=== PATIENT | male | born 1945 | race Caucasian/White ===

== ENCOUNTER 2023-11-18 12:02 | Outpatient (RCR) | payer MEDICARE, SELFPAY | END 2023-11-18 23:59 | disposition home or self-care (01) | LOC: RPT 12:02 | PROVIDERS: ATTENDING PHYSICIAN Student in an Organized Health Care Education/Training Program; PRIMARYCARE PHYSICIAN Family Medicine | DX: Z47.1 Aftercare following joint replacement surgery (principal); Z96.662 Presence of left artificial ankle joint; Z73.6 Limitation of activities due to disability | CPT/HCPCS: 97110; 97112; 97161 ==

== ENCOUNTER 2023-12-09 14:01 | Outpatient (RCR) | payer MEDICARE, SELFPAY | END 2023-12-09 14:57 | disposition home or self-care (01) | LOC: RPT 14:01 | PROVIDERS: ATTENDING PHYSICIAN Student in an Organized Health Care Education/Training Program; PRIMARYCARE PHYSICIAN Family Medicine | DX: Z47.1 Aftercare following joint replacement surgery (principal); Z73.6 Limitation of activities due to disability; R26.89 Other abnormalities of gait and mobility; R26.2 Difficulty in walking, not elsewhere classified; M62.81 Muscle weakness (generalized); Z96.662 Presence of left artificial ankle joint | CPT/HCPCS: 97110; 97112 ==

== ENCOUNTER → 2023-12-28 13:44 | Outpatient (REF) | payer MEDICARE, SELFPAY | LOC: MRI 13:44 | PROVIDERS: ATTENDING PHYSICIAN Student in an Organized Health Care Education/Training Program; FAMILY PHYSICIAN Family Medicine | DX: M25.571 Pain in right ankle and joints of right foot (principal) | CPT/HCPCS: 73718; 73721 ==

== ENCOUNTER → 2024-01-07 14:58 | Outpatient (REF) | payer MEDICARE, SELFPAY | LOC: HWRAD 14:58 | PROVIDERS: ATTENDING PHYSICIAN Orthopaedic Surgery Hand Surgery; FAMILY PHYSICIAN Family Medicine | DX: M12.811 Other specific arthropathies, not elsewhere classified, right shoulder (principal) | CPT/HCPCS: 73200 ==

== ENCOUNTER → 2024-01-11 13:12 | Outpatient (REF) | payer MEDICARE, SELFPAY ==
[2024-01-11 13:30] VITALS: BP 137/73; BP_SYST 16
[2024-01-11 13:46] VITALS: BP 128/69; BP_SYST 60
[2024-01-11 14:49] LABS: Body Fluid pH 7.27
[2024-01-11 14:57] LABS: Body Fluid Glucose 42 mg/dl; Body Fluid LDH 405 U/L; Body Fluid Protein 3.9 g/dl
[2024-01-11 15:30] LABS: Body Fluid Mononuclear 88 %; Body Fluid Polymorphonuclear 12 %; Body Fluid WBC 870 /CUMM
[2024-01-11 15:55] LABS: Body Fluid Second Tech EYM
== END ==
LOC: RADI 13:12
PROVIDERS: ATTENDING PHYSICIAN Internal Medicine Critical Care Medicine; FAMILY PHYSICIAN Family Medicine
DX: J90 Pleural effusion, not elsewhere classified (principal)
CPT/HCPCS: 88305; 32555; 71045; 82945; 83615; 83986; 84157; 87015; 87070; 87102; 87116; 87205; 87206; 88112; 89051

== ENCOUNTER 2024-01-12 06:16 | Day surgery (SDC) | payer MEDICARE, SELFPAY ==
--- NOTE | 2024-01-06 13:14 | PTCARENOTE ---
Abnormal CXR on 12/27/23, Dr. Escobar notified, advised ' CXR will have to be addressed prior to surgery'. Crystal Oconnell and Hailey Ibrahim notified, no further instructions.
--- NOTE | 2024-01-10 17:12 | PTCARENOTE ---
Hailey at 's office said that the patient will now be strictly local anesthesia.
[2024-01-12] VITALS (7 sets, daily range): BP systolic 85–144; BP diastolic 36–77; BMI 28.7
[2024-01-12] MEDS: TYLENOL 1000 MG PO (08:04)
[2024-01-12] MEDS: NORMOSOL-R 1000 IV (08:05)
[2024-01-12] MEDS: CELEBREX 200 MG PO (08:05)
== END 2024-01-12 10:55 | disposition home or self-care (01) ==
LOC: SDS 06:16
PROVIDERS: ATTENDING PHYSICIAN Student in an Organized Health Care Education/Training Program
DX: D36.13 Benign neoplasm of peripheral nerves and autonomic nervous system of lower limb, including hip (principal); D16.31 Benign neoplasm of short bones of right lower limb
CPT/HCPCS: 28104; 28080; 88304

== ENCOUNTER 2024-02-02 09:56 | Inpatient (IN) | payer MEDICARE, SELFPAY ==
--- NOTE | 2024-01-07 09:41 | CM ---
Addendum entered by Jane Ennis 01/07/24 10:12:
Patient is no longer same day as his has a commitment on day of surgery and can't be with patient.
Original Note:
Patient is scheduled for an elective R Reverse TSA on 02/02/24- he is a same day patient. Spoke with patient prior to surgery. Introduced role of Orthopedic Navigator. Patient reports that he lives with his in a two story home. Currently he
functions independently. He has a cane and shower seat. He has had VN services through [facility]. PCP is Dr. Salas Boggs.
Discussed orthopedic program and post surgical plans. Patient will return home when directed by surgeon. Reviewed MD follow up and transition to outpatient therapy. Patient is in agreement with tentative plan and states that his will be home
with him and can assist if needed.
Patient will complete online education.
Plan: Orthopedic Navigator will be involved in the care of patient after surgery and will reassess discharge needs at that time.
[2024-01-14 13:54] VITALS: BMI 29.1
[2024-01-14 14:29] LABS: Hematocrit 31.1 % (39.0-52.0); Hemoglobin 9.7 g/dL (13.0-18.0); Mean Corp Hgb Conc. 31.2 g/dL (33.0-37.0); Mean Corpuscular Hgb 26.5 pg (27.0-31.0); Mean Platelet Volume 9.3 fL (7.4-10.4); Platelet Count 388 10^3/uL (130-400); Red Blood Cell Count 3.66 10^6/uL (4.70-6.10); Red Cell Dist. Width 15.9 % (11.5-14.5); White Blood Cell Count 10.9 10^3/uL (4.8-10.8)
[2024-01-14 14:39] LABS: ALT (SGPT) 17 U/L (0-50); AST (SGOT) 73 U/L (17-59); Albumin 3.5 g/dl (3.5-5.0); Alkaline Phosphatase 135 U/L (38-126); Blood Urea Nitrogen 28 mg/dl (9-20); Calcium 8.7 mg/dl (8.4-10.2); Carbon Dioxide 29 mmol/L (22-30); Chloride 106 mmol/L (98-107); Estimated Creatinine Clearance 68 ml/min; Glucose 80 mg/dl (70-99); Potassium 3.4 mmol/L (3.5-5.1); Sodium 140 mmol/L (135-145); Total Bilirubin 0.6 mg/dl (0.2-1.3); eGFR > 60.00
[2024-01-15 10:57] LABS: Glycohemoglobin (HgbA1c) 5.7 % (4.0-5.6)
[2024-01-26 11:35] VITALS: BMI 29.1
[2024-02-02] VITALS (19 sets, daily range): BP systolic 90–120; BP diastolic 54–87; PULSE 60–63; O2SAT 96; BMI 29.1
[2024-02-02] MEDS: NORMOSOL-R 1000 IV ×2 (07:36→12:38)
[2024-02-02] MEDS: CELEBREX 200 MG PO (07:36)
[2024-02-02] MEDS: TYLENOL 1000 MG PO (07:36)
--- NOTE | 2024-02-02 07:58 | W.PN.UPDATE ---
Update Note
Progress Note Update
Asked by Anesthesiology to deactive patient's defibrillator. Right sided ICD. No recent AF or VT. AP/VS.
Turned tachytherapies off and provided printout to team at bedside. Discussed with patient, team, and Anesthesiology that the device should be turned back on (ICD therapies) in PACU and patient to remain on Defib pads while ICD off. Provided our
local [place] team's contact info to Anesthesiology team and they will call our local team to turn the device back on.
--- NOTE | 2024-02-02 08:47 | W.PN.ORTHO ---
Today's Communication / Plan
-
D/c when clinically stable.
Assessment
.
Distal Motor Intact: Yes
Dressing:
Clean, dry and intact.
Assessment:
R rotator cuff arthropathy s/p R Reverse TSA w/ Dr Platt 02/02/24
DVT prophylaxis - Eliquis at modified dosing, b/l venous foot pumps
- Will resume Eliquis 5 mg PO BID on POD 3 if remaining hemodynamically stable
HTN - + parameters - monitor BP
Coronary artery disease, status post PCI with multivessel stents 2009 and 2010
Paroxysmal atrial fibrillation, status post ablation 01/2023
Ventricular tachycardia, status post ICD implantation 10/2021
- Monitor on tele
- Continue BB and Isosorbide
- Resume Eliquis as stated above
Asthma, moderate and persistent
History of amiodarone related pulmonary toxicity
Right pleural effusion on chest x-ray 01/11/2024, status post thoracentesis
Obstructive sleep apnea, compliant with CPAP (setting 5)
Chronic dyspnea on exertion
- Monitor O2
- IS
- Duonebs prn
- Consider Prednisone taper
- Resume CPAP HS
- Minimize opioids as able
Documented chronic kidney disease; pre-operative creatinine and GFR stable - no NSAIDs
GERD - add Pepcid HS
Right frontal CVA, 2007, without residual deficits, and TIA x2 2009 - pt advised to take baby ASA while holding Eliquis pre-op
- Resume Eliquis as indicated above
Anemia, likely secondary to recent acute blood loss - monitor H&H
- Advised to start oral iron daily
Mild hypokalemia - will resume home Lasix w/ BP parameters. If Lasix should be given, KCl ordered for 1x dose
- Normosol also infusing
Mildly elevated transaminases - reduce max dose of Tylenol daily
OA, status post R TKA, 12/2017, by Dr. Ludin Ordaz
Hyperlipidemia
Mild aortic stenosis
Multilevel degenerative disc disease
Psoriasis
C. diff colitis 2010
Hearing impairment bilaterally
Mild leukocytosis
Prediabetes, A1c 5.7
Remote history of tobacco abuse
Plan
.
Surgery / Date: R Reverse SANDIE w/ Dr Platt 02/02/24
DVT Prophylaxis: Other (Eliquis )
Activity:
Out of bed.
PT/OT
Discharge Plan: Home
Subjective
.
.:
Patient resting comfortably in bed.
R shoulder pain minimal and currently well tolerated.
Denies any new significant complaints.
Vital Signs and Labs
.
Vital Signs and Labs:
Lab Results
01/14/24 13:47
01/14/24 13:47
Temp Pulse Resp BP Pulse Ox
97.6 F 64 16 120/69 100
02/02/24 07:23 02/02/24 07:23 02/02/24 07:23 02/02/24 07:23 02/02/24 07:23
Physical Exam
-
HEENT: No pallor, cyanosis, or jaundice. Throat clear.
NECK: Supple. No JVD.
RESPIRATORY: Lungs clear to auscultation.
CVS: S1, S2 normal. RRR.�+ R-sided ICD.
ABDOMEN: Soft, non-tender. No distension.
EXTREMITIES: + RUE sling. Good pile fabric knitter b/l. Strength equal, no calf pain with palpation/dorsiflexion. Calves soft.
SENIOR MEDIA BUYER: AOx3. No focal deficits. shaft mechanic grossly intact
[2024-02-02] MEDS: TYLENOL 650 MG PO ×2 (13:27→20:39)
[2024-02-02] MEDS: LIPITOR 40 MG PO (14:27)
[2024-02-02] MEDS: FEOSOL 325 MG PO (14:27)
[2024-02-02] MEDS: ANCEF 5 IV (15:09)
--- NOTE | 2024-02-02 16:30 | PTCARENOTE ---
Pt received from PACU s/p R Reverse TSA. AAOx3. A-paced on bricklayer supervisor. VSS. R shoulder Aquacel CDI. Sling on R arm. Pt denies any pain at this time. Normosol infusing per order. Assessment documented.
[2024-02-02 18:23] LABS: Hematocrit 26.6 % (39.0-52.0); Hemoglobin 8.6 g/dL (13.0-18.0)
[2024-02-02] MEDS: VITAMIN D3 (cholecalciferol) 125 MCG PO (20:40)
[2024-02-02] MEDS: PEPCID 20 MG PO (20:40)
[2024-02-02] MEDS: KCL 20 MEQ PO (20:40)
[2024-02-02] MEDS: LASIX 40 MG PO (20:40)
[2024-02-02] MEDS: ELIQUIS 2.5 MG PO (20:41)
[2024-02-02] MEDS: TOPROL XL 50 MG PO (20:41)
[2024-02-02] MEDS: BACTROBAN 2% OINTMENT 1 APPLIC NASAL (20:41)
[2024-02-02] MEDS: COLACE 100 MG PO (20:41)
[2024-02-02] MEDS: SENOKOT 17.1999999999999993 MG PO (20:41)
[2024-02-03] MEDS: ANCEF 5 IV (01:03)
[2024-02-03] MEDS: TYLENOL PO (03:01)
[2024-02-03 03:20] VITALS: BP 118/62
[2024-02-03 06:07] LABS: Hematocrit 26.2 % (39.0-52.0); Hemoglobin 8.3 g/dL (13.0-18.0)
[2024-02-03 07:45] VITALS: BP 111/53
[2024-02-03] MEDS: BACTROBAN 2% OINTMENT 1 APPLIC NASAL (08:26)
[2024-02-03] MEDS: FEOSOL 325 MG PO (08:27)
[2024-02-03] MEDS: SENOKOT 17.1999999999999993 MG PO (08:27)
[2024-02-03] MEDS: LIPITOR 40 MG PO (08:27)
[2024-02-03] MEDS: TYLENOL 650 MG PO (08:27)
[2024-02-03] MEDS: ELIQUIS 2.5 MG PO (08:28)
[2024-02-03] MEDS: COLACE 100 MG PO (08:29)
--- NOTE | 2024-02-03 08:52 | CM ---
Addendum entered by Jane Ennis 02/03/24 09:39:
Patient did well in therapy and has no concerns about going home.
Original Note:
Reviewed chart and held rounds with OT and nursing. Patient admitted as planned for elective R Reverse TSA. Met with patient at bedside. Confirmed information previously obtained for case management assessment and discussed discharge plans. The plan
is for patient to return home at discharge. He will have support from his when he goes home. Discussed MD follow up and he is aware of need to contact surgeon's office to schedule appointment.
Patient will use [facility] pharmacy for discharge prescriptions.
No needs currently identified.
--- NOTE | 2024-02-03 09:16 | W.PN.ORTHO ---
Today's Communication / Plan
-
Await OT recs.
D/c later today if remaining clinically stable.
Assessment
.
Distal Motor Intact: Yes
Dressing:
Clean, dry and intact.
Assessment:
R rotator cuff arthropathy s/p R Reverse TSA w/ Dr Platt 02/02/24
DVT prophylaxis - Eliquis at modified dosing, b/l venous foot pumps
- Will resume Eliquis 5 mg PO BID on POD 3 since hemodynamically stable
HTN - + parameters - BPs stable
Coronary artery disease, status post PCI with multivessel stents 2009 and 2010
Paroxysmal atrial fibrillation, status post ablation 01/2023
Ventricular tachycardia, status post ICD implantation 10/2021
- Rhythm stable on tele
- Continue BB and Isosorbide
- Resume Eliquis as stated above
Asthma, moderate and persistent
History of amiodarone related pulmonary toxicity
Right pleural effusion on chest x-ray 01/11/2024, status post thoracentesis
Obstructive sleep apnea, compliant with CPAP (setting 5)
Chronic dyspnea on exertion
- O2 stable on RA
- IS
- Duonebs prn - thankfully not needed
- Consider Prednisone taper
- Resumed CPAP HS
- Minimizing opioids as able
Documented chronic kidney disease; pre-operative creatinine and GFR stable - no NSAIDs
GERD - added Pepcid HS during admission
Right frontal CVA, 2007, without residual deficits, and TIA x2 2009 - pt advised to take baby ASA while holding Eliquis pre-op
- Resume Eliquis as indicated above
Acute on chronic anemia related to blood loss from recent surgeries - H&H stable yesterday and today (8.6, 8.3)
- Pt asymptomatic, hemodynamically stable
- Dressing remaining C/D/I
- Continue PO iron
- CBC outpatient to ensure stability
Mild hypokalemia - Given KCl, Normosol during admission
- Will put BP hold parameters on Lasix to avoid further drops in K+
Mildly elevated transaminases - reduced max dose of Tylenol daily
OA, status post R TKA, 12/2017, by Dr. Ludin Ordaz
Hyperlipidemia
Mild aortic stenosis
Multilevel degenerative disc disease
Psoriasis
C. diff colitis 2010
Hearing impairment bilaterally
Mild leukocytosis
Prediabetes, A1c 5.7
Remote history of tobacco abuse
Plan
.
Surgery / Date: R Reverse TSA w/ Dr Platt 02/02/24
DVT Prophylaxis: Other (Eliquis )
Activity:
Out of bed.
PT/OT
Discharge Plan: Home
Subjective
.
.:
Patient resting comfortably in his chair this morning.
R shoulder pain minimal due to nerve block.
Denies any new significant complaints.
Eager for potential d/c today.
Vital Signs and Labs
.
Vital Signs and Labs:
Lab Results
02/03/24 05:31
01/14/24 13:47
Temp Pulse Resp BP Pulse Ox
98.3 F 61 19 111/53 99
02/03/24 07:45 02/03/24 07:45 02/03/24 07:45 02/03/24 07:45 02/03/24 07:45
Physical Exam
-
HEENT: No pallor, cyanosis, or jaundice. Throat clear.
NECK: Supple. No JVD.
RESPIRATORY: Lungs clear to auscultation.
CVS: S1, S2 normal. RRR.�+ R-sided ICD.
ABDOMEN: Soft, non-tender. No distension.
EXTREMITIES: + RUE sling. Good gear design engineer b/l. Able to wiggle fingers b/l. Strength equal, no calf pain with palpation/dorsiflexion. Calves soft.
CHISEL TRIMMER: AOx3. No focal deficits. aerobics instructor grossly intact
[2024-02-03 09:37] VITALS: BP 126/60; O2SAT 97
--- NOTE | 2024-02-03 09:38 | W.DS.TRANS ---
DC Summary - Taxonomy Teacher
-
Discharge Instructions:
Discharge Diagnosis/Procedures R rotator cuff arthropathy s/p R Reverse TSA w/
Dr Platt 02/02/24
Diet Low Cholesterol,Low Sodium
Activity As tolerated
Additional Activity Non-weightbearing right upper extremity
Driving Restrictions Not until seen by your Dr
Bathing Restrictions OK to shower in 48 hours
Blood Work CBC without diff on 02/07/24, with
results to primary care for further anemia
management. You were given a script for this
upon discharge.
Instructions:
Stand-Alone Forms: Total Shoulder Replacement D/C
Changes to Home Medications: Yes
Discharge Medications:
DC Medications w/original date entered in [email or web address]
fenofibrate nanocrystallized 145 mg tablet 145 mg PO HS High cholesterol 12/28/17
nitroglycerin 0.4 mg sublingual tablet 0.4 mg sublingual [id number] PRN chest pain #25 tabs 11/08/20
atorvastatin 40 mg tablet 40 mg PO DAILY High cholesterol 05/23/21
isosorbide mononitrate 60 mg tablet,extended release 24 hr 60 mg PO DAILY Heart disease/condition 10/20/21
apixaban 5 mg tablet (Eliquis) 5 mg PO BID Blood clot prevention/tx #60 tabs 01/01/23
metoprolol succinate 50 mg tablet,extended release 24 hr 50 mg PO HS Blood pressure 02/03/23
cholecalciferol (vitamin D3) 125 mcg (5,000 unit) tablet (Vitamin D3) 125 mcg PO HS 09/17/23
dupilumab 300 mg/2 mL subcutaneous pen injector (Dupixent) 300 mg SC Q2W 09/17/23
icosapent ethyl 1 gram capsule 1 g PO BID 01/14/24
mupirocin 2 % topical ointment 1 applic intranasal BID #1 tube 01/14/24
Saccharomyces boulardii 250 mg capsule (Florastor) 250 mg PO BID #7 caps 02/03/24
acetaminophen 325 mg tablet 650 mg PO Q6H #30 tabs 02/03/24
apixaban 2.5 mg tablet (Eliquis) 2.5 mg PO BID #3 tabs 02/03/24
docusate sodium 100 mg capsule 100 mg PO BID #30 caps 02/03/24
doxycycline monohydrate 100 mg tablet 100 mg PO BID #7 tabs 02/03/24
ferrous sulfate 325 mg (65 mg iron) tablet (FeroSul) 325 mg PO DAILY #30 tabs 02/03/24
furosemide 40 mg tablet (Lasix) 40 mg PO HS #90 tabs 02/03/24
ondansetron HCl 4 mg tablet 4 mg PO Q6H PRN nausea and vomiting #30 tabs 02/03/24
oxycodone 5 mg tablet 5 - 10 mg PO Q6H PRN moderate-severe pain #30 tabs 02/03/24
sennosides 8.6 mg tablet (Senna Lax) 17.2 mg PO BID #30 tabs 02/03/24
Home Medication Changes
Saccharomyces boulardii 250 mg capsule (Florastor) 250 mg PO BID #7 caps 02/03/24
acetaminophen 325 mg tablet 650 mg PO Q6H #30 tabs 02/03/24
apixaban 2.5 mg tablet (Eliquis) 2.5 mg PO BID #3 tabs 02/03/24 - until POD 3
docusate sodium 100 mg capsule 100 mg PO BID #30 caps 02/03/24
doxycycline monohydrate 100 mg tablet 100 mg PO BID #7 tabs 02/03/24
ferrous sulfate 325 mg (65 mg iron) tablet (FeroSul) 325 mg PO DAILY #30 tabs 02/03/24
ondansetron HCl 4 mg tablet 4 mg PO Q6H PRN nausea and vomiting #30 tabs 02/03/24
oxycodone 5 mg tablet 5 - 10 mg PO Q6H PRN moderate-severe pain #30 tabs 02/03/24
sennosides 8.6 mg tablet (Senna Lax) 17.2 mg PO BID #30 tabs 02/03/24
Pending Results: No
== END 2024-02-03 12:32 | disposition home or self-care (01) | DRG 483 ==
LOC: 2 SOUTH 09:56
PROVIDERS: Physician Assistant; ADMITTING PHYSICIAN Orthopaedic Surgery Hand Surgery; FAMILY PHYSICIAN Family Medicine
PROC: 0RRJ00Z Replacement of Right Shoulder Joint with Reverse Ball and Socket Synthetic Substitute, Open Approach (ICD-10-PCS; 2024-02-02)
DX: M19.011 Primary osteoarthritis, right shoulder (principal); M75.101 Unspecified rotator cuff tear or rupture of right shoulder, not specified as traumatic; I25.10 Atherosclerotic heart disease of native coronary artery without angina pectoris; I48.0 Paroxysmal atrial fibrillation; G47.33 Obstructive sleep apnea (adult) (pediatric); J45.909 Unspecified asthma, uncomplicated; D64.9 Anemia, unspecified; I12.9 Hypertensive chronic kidney disease with stage 1 through stage 4 chronic kidney disease, or unspecified chronic kidney disease; N18.9 Chronic kidney disease, unspecified; K21.9 Gastro-esophageal reflux disease without esophagitis; E87.6 Hypokalemia; Z95.5 Presence of coronary angioplasty implant and graft; Z95.810 Presence of automatic (implantable) cardiac defibrillator; Z86.73 Personal history of transient ischemic attack (TIA), and cerebral infarction without residual deficits
CPT/HCPCS: 36415; 73020; 80053; 83036; 85014; 85018; 85027; 86850; 86900; 86901; 87070; 94660; 97110; 97166; 97535

== ENCOUNTER → 2024-02-09 11:58 | Outpatient (REF) | payer MEDICARE, SELFPAY ==
[2024-02-09 13:02] LABS: Hematocrit 28.9 % (39.0-52.0); Mean Corp Hgb Conc. 31.1 g/dL (33.0-37.0); Mean Corpuscular Hgb 25.3 pg (27.0-31.0); Mean Corpuscular Volume 81.2 fL (80.0-94.0); Mean Platelet Volume 8.7 fL (7.4-10.4); Platelet Count 377 10^3/uL (130-400); Red Blood Cell Count 3.56 10^6/uL (4.70-6.10); White Blood Cell Count 6.4 10^3/uL (4.8-10.8)
== END ==
LOC: REG 11:58
PROVIDERS: ATTENDING PHYSICIAN Physician Assistant; FAMILY PHYSICIAN Family Medicine
DX: D64.9 Anemia, unspecified (principal)
CPT/HCPCS: 36415; 85027

== ENCOUNTER 2024-03-27 07:47 | Outpatient (RCR) | payer MEDICARE, SELFPAY | END 2024-03-27 23:59 | disposition home or self-care (01) | LOC: RPT 07:47 | PROVIDERS: ATTENDING PHYSICIAN Physician Assistant; FAMILY PHYSICIAN Family Medicine | DX: M25.511 Pain in right shoulder (principal); Z96.611 Presence of right artificial shoulder joint; Z73.6 Limitation of activities due to disability | CPT/HCPCS: 97010; 97110; 97140; 97162 ==

== ENCOUNTER 2024-04-25 07:04 | Outpatient (RCR) | payer MEDICARE, SELFPAY | END 2024-04-25 10:27 | disposition home or self-care (01) | LOC: RPT 07:04 | PROVIDERS: ATTENDING PHYSICIAN Physician Assistant; FAMILY PHYSICIAN Family Medicine | DX: Z47.1 Aftercare following joint replacement surgery (principal); Z96.611 Presence of right artificial shoulder joint; Z73.6 Limitation of activities due to disability | CPT/HCPCS: 97010; 97110 ==

== ENCOUNTER → 2024-05-22 12:15 | Outpatient (REF) | payer MEDICARE, SELFPAY ==
[2024-05-22 13:03] LABS: % Basophils 0.5 % (0-2); % Eosinophils 4.3 % (0-6); % Immature Granulocytes 0.5 % (0-0.5); % Lymphocytes 17.4 % (20.5-51.1); % Monocytes 8.2 % (1.7-9.3); % Neutrophils 69.1 % (42.2-75.2); Absolute Eosinophils 0.3 10^3/uL (0-0.7); Absolute Lymphocytes 1.1 10^3/uL (1.2-3.4); Absolute Monocytes 0.5 10^3/uL (0.1-0.6); Absolute Neutrophils 4.6 10^3/uL (1.4-6.5); Hematocrit 34.9 % (39.0-52.0); Hemoglobin 10.8 g/dL (13.0-18.0); Mean Corp Hgb Conc. 30.9 g/dL (33.0-37.0); Mean Corpuscular Hgb 26.1 pg (27.0-31.0); Mean Corpuscular Volume 84.3 fL (80.0-94.0); Mean Platelet Volume 8.9 fL (7.4-10.4); Nucleated Red Blood Cells % 0 % (-); Platelet Count 342 10^3/uL (130-400); Red Blood Cell Count 4.14 10^6/uL (4.70-6.10); Red Cell Dist. Width 18.2 % (11.5-14.5); White Blood Cell Count 6.6 10^3/uL (4.8-10.8)
[2024-05-22 13:29] LABS: ALT (SGPT) 16 U/L (0-50); AST (SGOT) 59 U/L (17-59); Albumin 3.9 g/dl (3.5-5.0); Alkaline Phosphatase 131 U/L (38-126); Blood Urea Nitrogen 37 mg/dl (9-20); Calcium 9.3 mg/dl (8.4-10.2); Carbon Dioxide 27 mmol/L (22-30); Chloride 105 mmol/L (98-107); Glucose 97 mg/dl (70-99); Magnesium 2.1 mg/dl (1.6-2.3); Potassium 4.9 mmol/L (3.5-5.1); Sodium 139 mmol/L (135-145); Total Bilirubin 0.7 mg/dl (0.2-1.3); Total Protein 7.4 g/dl (6.3-8.2); eGFR > 60.00
[2024-05-22 13:31] LABS: Glycohemoglobin (HgbA1c) 5.5 % (4.0-5.6)
== END ==
LOC: REG 12:15
PROVIDERS: ATTENDING PHYSICIAN Internal Medicine Cardiovascular Disease
DX: I48.0 Paroxysmal atrial fibrillation (principal); R73.03 Prediabetes
CPT/HCPCS: 36415; 80053; 83036; 83735; 85025

== ENCOUNTER → 2024-06-20 10:08 | Outpatient (REF) | payer MEDICARE, SELFPAY | LOC: RCS 10:08 | PROVIDERS: ATTENDING PHYSICIAN Internal Medicine Cardiovascular Disease; FAMILY PHYSICIAN Family Medicine | DX: I48.0 Paroxysmal atrial fibrillation (principal); I25.10 Atherosclerotic heart disease of native coronary artery without angina pectoris | CPT/HCPCS: 93306 ==

== ENCOUNTER → 2024-08-02 09:16 | Outpatient (REF) | payer MEDICARE, SELFPAY | LOC: RCS 09:16 | PROVIDERS: ATTENDING PHYSICIAN Internal Medicine Cardiovascular Disease; FAMILY PHYSICIAN Family Medicine | DX: R06.02 Shortness of breath (principal) | CPT/HCPCS: 93308; 93321; 93325 ==

== ENCOUNTER 2024-08-07 12:56 | Inpatient (IN) | payer MEDICARE, SELFPAY ==
[2024-08-03 12:53] VITALS: BMI 31.7
[2024-08-03 13:19] LABS: ALT (SGPT) 12 U/L (0-50); AST (SGOT) 44 U/L (17-59); Albumin 4.2 g/dl (3.5-5.0); Alkaline Phosphatase 109 U/L (38-126); Blood Urea Nitrogen 32 mg/dl (9-20); Calcium 9.4 mg/dl (8.4-10.2); Carbon Dioxide 27 mmol/L (22-30); Chloride 101 mmol/L (98-107); Estimated Creatinine Clearance 65 ml/min; Glucose 98 mg/dl (70-99); LDH 223 U/L (120-246); Potassium 4.4 mmol/L (3.5-5.1); Sodium 140 mmol/L (135-145); Total Bilirubin 1.1 mg/dl (0.2-1.3); Total Protein 7.4 g/dl (6.3-8.2); eGFR > 60.00
[2024-08-03 13:34] LABS: % Basophils 0.3 % (0-2); % Eosinophils 4.5 % (0-6); % Immature Granulocytes 0.3 % (0-0.5); % Lymphocytes 13.3 % (20.5-51.1); % Monocytes 7.4 % (1.7-9.3); % Neutrophils 74.2 % (42.2-75.2); Absolute Eosinophils 0.3 10^3/uL (0-0.7); Absolute Monocytes 0.5 10^3/uL (0.1-0.6); Absolute Neutrophils 5.3 10^3/uL (1.4-6.5); Hematocrit 33.9 % (39.0-52.0); Hemoglobin 11.1 g/dL (13.0-18.0); Mean Corp Hgb Conc. 32.7 g/dL (33.0-37.0); Mean Corpuscular Hgb 26.8 pg (27.0-31.0); Mean Corpuscular Volume 81.9 fL (80.0-94.0); Mean Platelet Volume 8.8 fL (7.4-10.4); Nucleated Red Blood Cells % 0 % (-); Platelet Count 353 10^3/uL (130-400); Red Blood Cell Count 4.14 10^6/uL (4.70-6.10); Red Cell Dist. Width 15.9 % (11.5-14.5); White Blood Cell Count 7.1 10^3/uL (4.8-10.8)
[2024-08-03 13:38] LABS: Free T3 2.97 pg/ml (2.77-5.27); Free T4 0.97 ng/dl (0.78-2.19)
[2024-08-03 13:51] LABS: TSH 1.99 uIU/ml (0.47-4.68)
[2024-08-03 14:51] LABS: Erythrocyte Sed Rate 59 mm/hour (0-20)
[2024-08-07] VITALS (21 sets, daily range): BP systolic 88–136; BP diastolic 49–99; BMI 31.7
--- NOTE | 2024-08-07 12:34 | ITS.CL.CATH ---
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
Cardiac Catheterization
Procedure Report:
PERICARDIOCENTESIS REPORT
DATE: August 07, 2024
REFERRING: Dr. Morenita Nielsen
INDICATIONS: Sizable pericardial effusion. Sed rate measured 59 mm/hour and CRP 25.3 mg/L. Normal TSH, LDH
PROCEDURAL DETAILS: Informed consent was obtained. A subxiphoid approach was utilized to gain access to the pericardial space using a micropuncture needle. Ultrasound guidance was utilized and agitated saline contrast was injected to confirm
appropriate positioning of the access needle within the pericardial space. A guidewire was advanced to the pericardial space and the percutaneous access needle was removed. The incisional track was then dilated with a micropuncture sheath and was
followed by a 0.035 inch J guidewire and subsequent 6 Welsh sheath. A pigtail catheter was then advanced to the pericardial space and a total of 710 mL of serous pericardial fluid was removed with near complete resolution noted on the
echocardiogram.
RADIATION SUMMARY: Fluoro Time (min): 0.5, Dose (mGy): 15, DAP (Gy.cm2) : 1.3
CONCLUSIONS:
1. Successful pericardiocentesis with removal of 710 mL of serous pericardial fluid
2. Initiate colchicine 0.6 mg p.o. twice daily. If gastrointestinal side effects are encountered we can reduce to once daily.
3. Will follow CRP and sedimentation rate
4. Hold on nonsteroidal anti-inflammatory medications as patient is chronically maintained on apixaban for paroxysmal atrial fibrillation
Copy to: Dr. Morenita Nielsen
--- NOTE | 2024-08-07 13:00 | PTCARENOTE ---
pt received from laboratory mechanical technician to room 2249. pt AAOX3. denies pain. 100% a paced on telemetry heart rate 60. pulses palpable. no edema. pt on room air sat 97%. lung sounds clear. active bowel sounds. diet ordered. pericardial drain site CDI. draining
small amount of serous drainage. see worklist for full nursing assessment and interventions.
[2024-08-07 13:37] LABS: Body Fluid Glucose 104 mg/dl; Body Fluid LDH 246 U/L; Body Fluid Protein 5.4 g/dl
[2024-08-07 13:48] LABS: Body Fluid WBC 216 /CUMM
[2024-08-07 13:49] LABS: Body Fluid Hematocrit < 1 %
[2024-08-07 14:27] LABS: Body Fluid Second Tech LD
[2024-08-07 14:30] LABS: Body Fluid Granulocytes 7 %; Body Fluid Lymphocytes 14 %; Body Fluid Macrophages 79 %
--- NOTE | 2024-08-07 20:00 | PTCARENOTE ---
Received pt from [facility]. pt resting comfortably in bed. pt is AAOx4, TELIDA, denies pained. 100% A-paced on monitor, AICD. VSS. heart sounds audible, radial and DP pulses palpable, no edema noted, pericardial drain in place for recurring pericardial
effusions. lungs CTA, spo2 97% on RA. + BS x4 quadrants, abdomen soft, non tender. pt voiding clear yellow urine. pericardial drain dressing is clean, dry, and intact. PIV maintained.
[2024-08-07] MEDS: COLCHICINE 0.6 MG PO (20:02)
[2024-08-08] VITALS (12 sets, daily range): BP systolic 102–123; BP diastolic 63–82; BMI 33.4
--- NOTE | 2024-08-08 | PTCARENOTE ---
Pt assessment unchanged. 100% A-paced on monitor. VSS. pt resting comfortably in bed. pericardial drain dressing clean, dry, and intact. call varner within reach. will continue to monitor.
--- NOTE | 2024-08-08 04:00 | PTCARENOTE ---
Pt assessment unchanged. pt resting comfortably in bed. pericardial drain monitored throughout the night. call varner within reac. will continue to monitor.
[2024-08-08] MEDS: TYLENOL 650 MG PO ×2 (04:45→22:00)
[2024-08-08 04:50] LABS: Hematocrit 32.4 % (39.0-52.0); Hemoglobin 10.8 g/dL (13.0-18.0); Mean Corp Hgb Conc. 33.3 g/dL (33.0-37.0); Mean Corpuscular Hgb 26.8 pg (27.0-31.0); Mean Corpuscular Volume 80.4 fL (80.0-94.0); Mean Platelet Volume 8.6 fL (7.4-10.4); Platelet Count 291 10^3/uL (130-400); Red Blood Cell Count 4.03 10^6/uL (4.70-6.10); Red Cell Dist. Width 15.5 % (11.5-14.5); White Blood Cell Count 7.3 10^3/uL (4.8-10.8)
[2024-08-08 05:13] LABS: Blood Urea Nitrogen 25 mg/dl (9-20); Calcium 9.1 mg/dl (8.4-10.2); Carbon Dioxide 21 mmol/L (22-30); Chloride 104 mmol/L (98-107); Estimated Creatinine Clearance 66 ml/min; Glucose 103 mg/dl (70-99); Potassium 4.2 mmol/L (3.5-5.1); Sodium 140 mmol/L (135-145); eGFR > 60.00
[2024-08-08] MEDS: COLCHICINE 0.6 MG PO ×2 (07:49→20:09)
[2024-08-08] MEDS: IMDUR (EXTENDED RELEASE) 60 MG PO (07:49)
[2024-08-08] MEDS: LIPITOR 40 MG PO (07:49)
[2024-08-08] MEDS: LASIX 40 MG PO (07:49)
[2024-08-08] MEDS: TOPROL XL 50 MG PO (07:49)
--- NOTE | 2024-08-08 09:35 | W.PN.CARDCBS ---
Addendum entered and electronically signed by Ian Arreola MD 08/08/24 10:11:
I saw and examined the patient.
The NIGHT MANAGER or PA's note was reviewed and I agree with the note.
Comment: General: Well developed, well nourished in NAD.
Neck: Supple, no JVD, HJR, carotids +2 B/L, no bruits bilaterally.
Heart: Non displaced PMI, RRR, no murmurs, No S3, S4, no rubs.
Lungs: Scattered rhonchi
Extremities: No clubbing, cyanosis or edema bilaterally.
Neuro: Grossly nonfocal, awake, alert and oriented x3.
Pericardial drain with 125 mL overnight. Will continue pericardial drain until less than 25-30 mL over 24 hours. Repeat echo pending. Continue colchicine for pericarditis. Fluids serology pending. Eliquis remains on hold. Discussed with nursing
Original Note:
Today's Communication / Plan
-
Monitor fluid output from pericardial drain
Repeat echo pending
Eliquis on hold
Pericardial fluid analysis pending
Continue treatment of pericarditis with colchicine
Impression / Plan
-
Primary Tractor Driver: Dr. Nielsen
Assessment:
Presentation with large pericardial effusion without tamponade by echo status post pericardiocentesis for 700 cc 08/07/2024
History of thoracentesis 12/2023
Chronic HFpEF
Paroxysmal atrial fibrillation status post PVI 01/2023
Chronic anticoagulation with Eliquis
History of VT/VF status post [place] [facility] DC ICD 10/2021
CAD
circ PCI 10/2020, with chronically occluded appearance by cath 12/2022
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
LAD PCI 09/2021
Mild to mod
Hypertension
Asthma
Eosinophilia
JACOB
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
History of CVA 2007
Dyslipidemia
Prediabetes
[employer] [employer]
R shoulder replacement 01/2024
ECHO 06/20/24: EF 61%, mild concentric LVH, stage I diastolic dysfunction, moderate with peak/mean gradient 32/17 mmHg, DICK 1.2 cm�, mild TR, PAP 27 mmHg, mild to moderate circumferential pericardial effusion without evidence of hemodynamic
compromise and fibrinous stranding
Echo 08/02/2024: EF 55 to 60%, mild to moderate with peak/mean gradients 26 use 12 mmHg, DICK 1.5 cm�, no AR, moderate to large pericardial effusion with no clear evidence of RV chamber collapse, moderate pericardial thickening
Echo 08/07/2024: Limited echo during pericardiocentesis, EF 55 to 60%, trivial MR and TR, large circumferential pericardial effusion with fibrinous material, no definite evidence of hemodynamic compromise. Following pericardiocentesis minimal fluid
noted
Plan:
-Patient underwent echocardiogram 08/22 and was arranged for elective pericardiocentesis on 08/07/2024 successful for draining 700 cc
-Pericardial fluid analysis pending
-Pericardial drain remains in place. With approximately 125 cc of output in the last 24 hours. Will leave drain today and reassess output in a.m. and hopefully remove
-Echo this morning pending
-Outpatient Eliquis remains on hold
-Started on treatment for pericarditis with colchicine as with elevated inflammatory markers
-Blood pressure stable. Continue outpatient Lasix, Imdur, Toprol
-A paced rhythm on review of telemetry overnight.
-Discussed with nursing. discussed with interventional cardiology
Progress Note - Tractor Driver
Subjective
Date of Service: August 08, 2024
Feeling well. Reports some mild chest discomfort at pericardial drain site
Objective
Labs:
08/08/24 04:15
08/08/24 04:15
Labs
Hgb 10.8 g/dL (13.0-18.0) L 08/08/24 04:15
Hct 32.4 % (39.0-52.0) L 08/08/24 04:15
Plt Count 291 10^3/uL (130-400) 08/08/24 04:15
Sodium 140 mmol/L (135-145) 08/08/24 04:15
Potassium 4.2 mmol/L (3.5-5.1) 08/08/24 04:15
BUN 25 mg/dl (9-20) H 08/08/24 04:15
Creatinine 1.0 mg/dL (0.7-1.3) 08/08/24 04:15
Glucose 103 mg/dl (70-99) H 08/08/24 04:15
Vital Signs and I&O:
Vital Signs
Temp Pulse Resp BP Pulse Ox
98.0 F 61 18 109/72 96
08/08/24 07:45 08/08/24 08:00 08/08/24 07:45 08/08/24 07:49 08/08/24 07:45
Vital Signs
Temp Pulse Resp BP Pulse Ox
98.0 F 61 18 109/72 96
08/08/24 07:45 08/08/24 08:00 08/08/24 07:45 08/08/24 07:49 08/08/24 07:45
Intake & Output
08/06/24 08/07/24 08/08/24 08/09/24
07:59 07:59 07:59 07:59
Intake Total 480 / 480
Output Total 1450 / 1450
Balance -970 / -970
Physical Exam
Physical Exam
GEN: No distress, awake, alert, oriented x3. Sitting in chair
HEENT: supple, anicteric, mmm, EOMI
LUNGS: CTA bilaterally, no wheezes/rales
CV: Reg, S1/S2, 1/6 syst LSB. Pericardial drain in place
ABD: soft, BS+, NT/ND
EXT: No clubbing, cyanosis, edema
NEURO: Gross non-focal
SKIN: Warm, pink, dry. No rash
--- NOTE | 2024-08-08 16:50 | CM ---
spoke to pt in room, he is prev indep, lives in [place] in [facility], it is a 2 story home with 1 step to enter. he denies any dc planning needs or dme's. plan is for dc to home when medically stable.
[2024-08-09] VITALS (9 sets, daily range): BP systolic 112–127; BP diastolic 67–85; BMI 30.1
--- NOTE | 2024-08-09 06:33 | PTCARENOTE ---
Pericardial drain w/ zero output overnight. Tele remains Apaced. Pt aware of POC. Call varner within reach.
[2024-08-09] MEDS: IMDUR (EXTENDED RELEASE) 60 MG PO (07:10)
[2024-08-09] MEDS: TOPROL XL 50 MG PO (07:10)
[2024-08-09] MEDS: LIPITOR 40 MG PO (07:10)
[2024-08-09] MEDS: LASIX 40 MG PO (07:11)
[2024-08-09] MEDS: COLCHICINE 0.6 MG PO ×2 (07:14→19:59)
--- NOTE | 2024-08-09 09:50 | W.PN.CARDCBS ---
Addendum entered and electronically signed by Orquidea Mcelroy MD 08/09/24 13:52:
I saw and examined the patient.
The Electric Motor Assembler And Tester's note was reviewed and I agree with the note.
Comment: Patient is doing well this morning and does not offer any significant complaints. No significant drain output overnight and 50 cc noted yesterday. Limited echocardiogram yesterday was reviewed by me which showed trivial pericardial
effusion, significantly improved from before pericardiocentesis.
Vital signs and lab work reviewed. No clear etiology identified for pericardial effusion. Cytology is still pending. On exam patient is pleasant, in no acute distress, alert and oriented x 3, normal S1 and S2, no obvious pericardial rub on exam,
no murmurs, gallops, lungs are clear to auscultation bilaterally, abdomen is soft, nontender, nondistended with active bowel sounds, warm extremities.
Recommendations:
1. Drain was discontinued by me at bedside without acute complications. Plan for repeat limited echocardiogram tomorrow morning to reassess size of the effusion prior to consideration for possible discharge.
2. Continue colchicine for now to prevent recurrence and treat any component of pericarditis.
3. Continue to follow pericardial fluid assessment.
4. We will work on setting up outpatient follow-up including a repeat echo in 1 week after discharge at which point we will decide when it may be safe to resume his oral anticoagulant.
Discussed all of the above with his outpatient pediatric audiologist.
Orquidea Mcelroy MD, [facility], [facility]
Original Note:
Today's Communication / Plan
-
consider pulling pericardial drain today
repeat echo in AM to reassess
pericardial fluid pending
will need to determine when ok to resume OAC
Impression / Plan
-
Primary Form Setter Steel Pan Forms: Dr. Nielsen
Assessment:
Presentation with large pericardial effusion without tamponade by echo status post pericardiocentesis for 700 cc 08/07/2024
History of thoracentesis 12/2023
Chronic HFpEF
Paroxysmal atrial fibrillation status post PVI 01/2023
Chronic anticoagulation with Eliquis
History of VT/VF status post [facility] DC ICD 10/2021
CAD
circ PCI 10/2020, with chronically occluded appearance by cath 12/2022
DIRECTOR CASE RCA s/p PCI x2 04/2021
LAD PCI 09/2021
Mild to mod
Hypertension
Asthma
Eosinophilia
JACOB
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
History of CVA 2007
Dyslipidemia
Prediabetes
[place]
R shoulder replacement 01/2024
ECHO 06/20/24: EF 61%, mild concentric LVH, stage I diastolic dysfunction, moderate with peak/mean gradient 32/17 mmHg, DICK 1.2 cm�, mild TR, PAP 27 mmHg, mild to moderate circumferential pericardial effusion without evidence of hemodynamic
compromise and fibrinous stranding
Echo 08/02/2024: EF 55 to 60%, mild to moderate with peak/mean gradients 26 use 12 mmHg, DICK 1.5 cm�, no AR, moderate to large pericardial effusion with no clear evidence of RV chamber collapse, moderate pericardial thickening
Echo 08/07/2024: Limited echo during pericardiocentesis, EF 55 to 60%, trivial MR and TR, large circumferential pericardial effusion with fibrinous material, no definite evidence of hemodynamic compromise. Following pericardiocentesis minimal fluid
noted
ECHO 08/08/24: Limited to reassess pericardial effusion, EF 55 to 60%, minimal pericardial effusion
Plan:
-Patient underwent echocardiogram 08/22 and was arranged for elective pericardiocentesis on 08/07/2024 successful for draining 700 cc
-Pericardial fluid analysis pending
-Pericardial drain remains in place. With 50cc fluid out yesterday, none reported overnight. consider pulling drain today
-Echo 08/08 with minimal pericardial effusion. consider repeat in AM if drain removed this afternoon
-Outpatient Eliquis remains on hold
-Started on treatment for pericarditis with colchicine as with elevated inflammatory markers
-Blood pressure stable. Continue outpatient Lasix, Imdur, Toprol
-mostly A paced rhythm on review of telemetry overnight.
-Discussed with nursing
Progress Note - Form Setter Steel Pan Forms
Subjective
Date of Service: August 09, 2024
no issues overnight. feeling well
Objective
Labs:
08/08/24 04:15
08/08/24 04:15
Labs
Hgb 10.8 g/dL (13.0-18.0) L 08/08/24 04:15
Hct 32.4 % (39.0-52.0) L 08/08/24 04:15
Plt Count 291 10^3/uL (130-400) 08/08/24 04:15
Sodium 140 mmol/L (135-145) 08/08/24 04:15
Potassium 4.2 mmol/L (3.5-5.1) 08/08/24 04:15
BUN 25 mg/dl (9-20) H 08/08/24 04:15
Creatinine 1.0 mg/dL (0.7-1.3) 08/08/24 04:15
Glucose 103 mg/dl (70-99) H 08/08/24 04:15
Vital Signs and I&O:
Vital Signs
Temp Pulse Resp BP Pulse Ox
97.9 F 68 16 120/67 98
08/09/24 07:04 08/09/24 08:00 08/09/24 07:04 08/09/24 07:07 08/09/24 07:53
Vital Signs
Temp Pulse Resp BP Pulse Ox
97.9 F 68 16 120/67 98
08/09/24 07:04 08/09/24 08:00 08/09/24 07:04 08/09/24 07:07 08/09/24 07:53
Intake & Output
08/07/24 08/08/24 08/09/24 08/10/24
07:59 07:59 07:59 07:59
Intake Total 480 / 480 1200 / 1200
Output Total 1450 / 1450 350 / 350
Balance -970 / -970 850 / 850
Physical Exam
Physical Exam
GEN: No distress, awake, alert, oriented x3
HEENT: supple, anicteric, mmm, eomi
LUNGS: CTA B/L, no wheezes/rales
CV: Reg, S1/S2, no murmur
ABD: soft, BS+, NT/ND
EXT: No cyanosis, clubbing, edema
NEURO: Gross non-focal
SKIN: Warm, pink, dry. No rash. pericardial drain in place with straw colored output in container
--- NOTE | 2024-08-09 14:20 | CM ---
CM following for DC planning needs.
Attempted to meet w/ patient at bedside but patient was sleeping; did not disturb.
Reviewed DC plan; anticipate home without needs. CM to follow.
--- NOTE | 2024-08-09 18:00 | PTCARENOTE ---
Pt received this am with pericardial drain intact. No drainage noted since last measured. Pt oob ad david in the room, gait steady. Denies any pain or sob. Dr. Mcelroy removed drain at 1350. Middles chest dressing remains dry and intact.
--- NOTE | 2024-08-09 21:00 | PTCARENOTE ---
Assumed care of pt from dayshift RN. Walking rounds completed. Pt AAOx3. Speech appropriate. A-paced on the tele monitor. HR 60. BP 112/69. Bilateral DP pulses weak to palpation. Bilateral radial pulses palpable. No edema noted. Pt on RA. 96-98%.
Lungs clear to auscultation. Deep breathing encouraged. Abdomen soft/nontender. +BS. Pt voiding w/o difficulty. Pericardial drain dc'd earlier in the day - dressing CDI. No c/o pain at this time. Pt updated w/ plan of care for the night. Call varner
within reach.
[2024-08-10 03:40] VITALS: BP 102/69
[2024-08-10 03:42] VITALS: BP 102/69
[2024-08-10 07:30] VITALS: BP 116/78
[2024-08-10] MEDS: TOPROL XL 50 MG PO (08:34)
[2024-08-10] MEDS: LIPITOR 40 MG PO (08:34)
[2024-08-10] MEDS: IMDUR (EXTENDED RELEASE) 60 MG PO (08:34)
[2024-08-10] MEDS: LASIX 40 MG PO (08:34)
[2024-08-10] MEDS: COLCHICINE 0.6 MG PO (08:34)
--- NOTE | 2024-08-10 09:43 | W.PN.CARDCBS ---
Addendum entered and electronically signed by Shanta Pena PA-C 08/10/24 16:15:
[id number]
Addendum entered and electronically signed by Michael Acosta DO 08/10/24 12:08:
I saw and examined the patient.
The Claim Auditor's note was reviewed and I agree with the note.
Comment:
Plan:
Repeat echo stable with minial effusion and no change from previous
Cont to hold Eliquis. He has not had AFib in over a year
Outpt echo in one week to reeval effusion
Continue lower dose Toprol
Stable for d/c
Follow up arranged
Discussed with nursing.
Original Note:
Today's Communication / Plan
-
awaiting repeat echo 08/10
holding eliquis
continue colchicine
repeat echo next week with OP cardiac follow up
Pericardial fluid analysis pending
likely for DC to home today
Impression / Plan
-
Primary Lyric Writer: Dr. Nielsen
Assessment:
Presentation with large pericardial effusion without tamponade by echo status post pericardiocentesis for 700 cc 08/07/2024
History of thoracentesis 12/2023
Chronic HFpEF
Paroxysmal atrial fibrillation status post PVI 01/2023
Chronic anticoagulation with Eliquis
History of VT/VF status post [facility] DC ICD 10/2021
CAD
circ PCI 10/2020, with chronically occluded appearance by cath 12/2022
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
LAD PCI 09/2021
Mild to mod
Hypertension
Asthma
Eosinophilia
JACOB
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
History of CVA 2007
Dyslipidemia
Prediabetes
[place]
R shoulder replacement 01/2024
ECHO 06/20/24: EF 61%, mild concentric LVH, stage I diastolic dysfunction, moderate with peak/mean gradient 32/17 mmHg, DICK 1.2 cm�, mild TR, PAP 27 mmHg, mild to moderate circumferential pericardial effusion without evidence of hemodynamic
compromise and fibrinous stranding
Echo 08/02/2024: EF 55 to 60%, mild to moderate with peak/mean gradients 26 use 12 mmHg, DICK 1.5 cm�, no AR, moderate to large pericardial effusion with no clear evidence of RV chamber collapse, moderate pericardial thickening
Echo 08/07/2024: Limited echo during pericardiocentesis, EF 55 to 60%, trivial MR and TR, large circumferential pericardial effusion with fibrinous material, no definite evidence of hemodynamic compromise. Following pericardiocentesis minimal fluid
noted
ECHO 08/08/24: Limited to reassess pericardial effusion, EF 55 to 60%, minimal pericardial effusion
Plan:
-Patient underwent echocardiogram 08/07/24 and was arranged for elective pericardiocentesis on 08/07/2024 successful for draining 700 cc
-Pericardial fluid analysis pending
-drain pulled 08/09/24 as echo yesterday remained with minimal fluid
-repeat echo this morning
-Outpatient Eliquis remains on hold - may be able to discontinue as has not had recurrent afib since 02/2024, will discuss further as OP
-Started on treatment for pericarditis with colchicine as with elevated inflammatory markers
-Blood pressure stable. Continue outpatient Lasix, Imdur, Toprol
-mostly A paced rhythm on review of telemetry overnight.
-plan for DC to home today if repeat echo ok. repeat echo next week 08/16/24 to reeval for reaccumulation
-Discussed with nursing
Progress Note - Lyric Writer
Subjective
Date of Service: August 10, 2024
no issues overnight. eager for DC
Objective
Labs:
08/08/24 04:15
08/08/24 04:15
Labs
Hgb 10.8 g/dL (13.0-18.0) L 08/08/24 04:15
Hct 32.4 % (39.0-52.0) L 08/08/24 04:15
Plt Count 291 10^3/uL (130-400) 08/08/24 04:15
Sodium 140 mmol/L (135-145) 08/08/24 04:15
Potassium 4.2 mmol/L (3.5-5.1) 08/08/24 04:15
BUN 25 mg/dl (9-20) H 08/08/24 04:15
Creatinine 1.0 mg/dL (0.7-1.3) 08/08/24 04:15
Glucose 103 mg/dl (70-99) H 08/08/24 04:15
Vital Signs and I&O:
Vital Signs
Temp Pulse Resp BP Pulse Ox
98.1 F 70 17 102/69 97
08/10/24 07:28 08/10/24 03:42 08/10/24 07:28 08/10/24 03:42 08/10/24 07:28
Vital Signs
Temp Pulse Resp BP Pulse Ox
98.1 F 70 17 102/69 97
08/10/24 07:28 08/10/24 03:42 08/10/24 07:28 08/10/24 03:42 08/10/24 07:28
Intake & Output
08/08/24 08/09/24 08/10/24 08/11/24
07:59 07:59 07:59 07:59
Intake Total 480 / 480 1200 / 1200
Output Total 1450 / 1450 350 / 350
Balance -970 / -970 850 / 850 -10 / -10
Physical Exam
Physical Exam
GEN: No distress, awake, alert, oriented x3
HEENT: supple, anicteric, mmm, eomi
LUNGS: CTA B/L, no wheezes/rales
CV: Reg, S1/S2, no murmur
ABD: soft, BS+, NT/ND
EXT: No cyanosis, clubbing, edema
NEURO: Gross non-focal
SKIN: Warm, pink, dry. No rash. subxiphoid dressing c/d/i
--- NOTE | 2024-08-10 09:51 | W.DS.TRANS ---
DC Summary - Aluminizer
-
Discharge Instructions:
Discharge Diagnosis/Procedures Pericardial effusion, s/p pericardiocentesis
Diet Low Cholesterol
Activity No strenuous activity
Additional Activity no heavy lifting greater than 10 pounds for 1
week!
Driving Restrictions No driving for 24 hours
Others [facility]
@10:30 - see order sheet
Instructions:
Stand-Alone Forms: DC Instructions- Cath/EP Lab
Changes to Home Medications: Yes
Discharge Medications:
DC Medications w/original date entered in [employer]
nitroglycerin 0.4 mg sublingual tablet 0.4 mg sublingual [id number] PRN chest pain #25 tabs 11/08/20
atorvastatin 40 mg tablet 40 mg PO DAILY High cholesterol 05/23/21
isosorbide mononitrate 60 mg tablet,extended release 24 hr 60 mg PO DAILY Heart disease/condition 10/20/21
metoprolol succinate 50 mg tablet,extended release 24 hr 50 mg PO DAILY Blood pressure 02/03/23
cholecalciferol (vitamin D3) 125 mcg (5,000 unit) tablet (Vitamin D3) 125 mcg PO HS 09/17/23
dupilumab 300 mg/2 mL subcutaneous pen injector (Dupixent) 300 mg SC Q2W 09/17/23
icosapent ethyl 1 gram capsule 1 g PO BID 01/14/24
ferrous sulfate 325 mg (65 mg iron) tablet (iron) 325 mg PO HS 08/02/24
furosemide 40 mg tablet (Lasix) 40 mg PO DAILY 08/07/24
colchicine 0.6 mg tablet 0.6 mg PO BID #180 tabs 08/10/24
Home Medication Changes
holding eliquis
colchicine is new
Pending Results: Yes
Additional Pending Results:
pericardial fluid cytology
[2024-08-10 11:40] VITALS: BP 118/68
--- NOTE | 2024-08-10 11:41 | PTCARENOTE ---
Pt received this am with no c/o of chest pain or sob. OOB ad david in the room. Chest dressing dry and intact. Denies any pain or discomfort. Pt discharged to home with his . Discharge instructions given and reviewed with pt and his with good
understanding and all questions answered.
== END 2024-08-10 11:40 | disposition home or self-care (01) | DRG 315 ==
LOC: IVU 12:56
PROVIDERS: Internal Medicine Interventional Cardiology; Nurse Practitioner; ADMITTING PHYSICIAN Internal Medicine Interventional Cardiology; FAMILY PHYSICIAN Family Medicine
PROC: 0W9D30Z Drainage of Pericardial Cavity with Drainage Device, Percutaneous Approach (ICD-10-PCS; 2024-08-07)
PROC: 0WPDX0Z Removal of Drainage Device from Pericardial Cavity, External Approach (ICD-10-PCS; 2024-08-09)
DX: I31.39 Other pericardial effusion (noninflammatory) (principal); I47.20 Ventricular tachycardia, unspecified; I50.32 Chronic diastolic (congestive) heart failure; J82.83 Eosinophilic asthma; I48.0 Paroxysmal atrial fibrillation; I11.0 Hypertensive heart disease with heart failure; I25.10 Atherosclerotic heart disease of native coronary artery without angina pectoris; I35.0 Nonrheumatic aortic (valve) stenosis; D64.9 Anemia, unspecified; T46.2X5A Adverse effect of other antidysrhythmic drugs, initial encounter; E78.5 Hyperlipidemia, unspecified; J45.40 Moderate persistent asthma, uncomplicated; G47.33 Obstructive sleep apnea (adult) (pediatric); K21.9 Gastro-esophageal reflux disease without esophagitis; E66.9 Obesity, unspecified; J70.4 Drug-induced interstitial lung disorders, unspecified; R73.03 Prediabetes; H91.90 Unspecified hearing loss, unspecified ear; Z68.33 Body mass index [BMI] 33.0-33.9, adult; Z96.651 Presence of right artificial knee joint; Z96.611 Presence of right artificial shoulder joint; Z87.891 Personal history of nicotine dependence; Z86.73 Personal history of transient ischemic attack (TIA), and cerebral infarction without residual deficits; Z98.61 Coronary angioplasty status; Z95.810 Presence of automatic (implantable) cardiac defibrillator; Z86.19 Personal history of other infectious and parasitic diseases; Z79.01 Long term (current) use of anticoagulants; Z79.899 Other long term (current) drug therapy
CPT/HCPCS: 88305; 93308; 33016; 36415; 80048; 80053; 82945; 83615; 84157; 84439; 84443; 84481; 85014; 85025; 85027; 85652; 86140; 87015; 87070; 87102; 87116; 87205; 87206; 88112; 89051; 93005; 93321; 93325; C1894

== ENCOUNTER → 2024-08-16 10:39 | Outpatient (REF) | payer MEDICARE, SELFPAY | LOC: RCS 10:39 | PROVIDERS: ATTENDING PHYSICIAN Internal Medicine Cardiovascular Disease; FAMILY PHYSICIAN Family Medicine | DX: I31.39 Other pericardial effusion (noninflammatory) (principal) | CPT/HCPCS: 93308; 93321; 93325 ==

== ENCOUNTER 2024-08-22 06:21 | Day surgery (SDC) | payer MEDICARE, SELFPAY ==
[2024-08-22 09:17] VITALS: BMI 29.1
[2024-08-22 09:19] VITALS: BMI 29.1
[2024-08-22 09:22] VITALS: BP 129/76
[2024-08-22 11:15] VITALS: BP 113/68
[2024-08-22 11:45] VITALS: BP 128/71
== END 2024-08-22 12:18 | disposition home or self-care (01) ==
LOC: SDS 06:21
PROVIDERS: ATTENDING PHYSICIAN Internal Medicine
PROC: 0DBP8ZX Excision of Rectum, Via Natural or Artificial Opening Endoscopic, Diagnostic (ICD-10-PCS; 2024-08-22)
PROC: 0DB68ZX Excision of Stomach, Via Natural or Artificial Opening Endoscopic, Diagnostic (ICD-10-PCS; 2024-08-22)
DX: K29.70 Gastritis, unspecified, without bleeding (principal); D50.9 Iron deficiency anemia, unspecified; D12.8 Benign neoplasm of rectum; K64.8 Other hemorrhoids
CPT/HCPCS: 43239; 45385; 88305; 88342

== ENCOUNTER → 2024-09-11 07:03 | Outpatient (REF) | payer MEDICARE, SELFPAY | LOC: RCS 07:03 | PROVIDERS: ATTENDING PHYSICIAN Physician Assistant Medical; FAMILY PHYSICIAN Family Medicine | DX: I31.39 Other pericardial effusion (noninflammatory) (principal) | CPT/HCPCS: 93306 ==

== ENCOUNTER 2024-10-28 11:56 | Emergency (ER) | payer MEDICARE, SELFPAY ==
[2024-10-28 11:58] VITALS: BP 157/86
--- NOTE | 2024-10-28 12:33 | ED.MUSCINJ ---
HPI-Injury
General
Chief Complaint: Musculo-Skeletal Complaint
Time Seen by Provider: 10/28/24 12:23
History of Present Illness-Injury
Initial Injury comments:
Patient presents to the emergency department with right shoulder subluxation. Had a total shoulder arthroplasty on February 01 of this year. He has been having issues with subluxation that he self reduces at home. This morning while doing laundry he
felt the shoulder pop out at this time the shoulder has spontaneously reduced and he feels back to his baseline. Denies numbness or tingling
Past History
Past History
ED Past Medical History: Arrthythmia, CAD, COPD, CVA, HTN, Hypercholesterolemia and Other (TIA, JACOB, C. difficile, PNA, Sleep apnea, Psoriosis)
ED Past Surgical History: Cardiac (Pacer/defib, Stents X 4), Cholecystectomy and Orthopedic (rotator cuff)
Social History
Tobacco: Former smoker
Alcohol: Occasional
Drug: None
Personal:
Living: with family
Employment: Employed
Phy Exam
Physical Exam
Physical Exam:
General: No acute distress
Head: NCAT
Neck, Normal in appearance, no swelling
Respiratory: No Respiratory distress
Abdomen: No distension
Ext: no edema, full range of motion of right shoulder. There is no tenderness or visible or palpable abnormalities. Intact distal pulses. 5 out of 5 strength in elbow flexion and extension and wrist flexion and extension
Neuro: SMITH, AOx4
Psych: Normal affect
Skin: Normal color
Injury Course
Orders/Labs/Results
Orders:
Orders
10/28/24 12:01
Shoulder, Right 2 Views [CR Shoulder - Right Min 2 View] Urgent
Comment:
Reason For Exam: pain
10/28/24 12:31
Sling [Braces/Immobilizers] As Directed
Type of Brace/Immobilizer: Sling
*Critical Care Note
Total Time (30-74mins, 75-104mins- exclusive of procedures): Not Applicable
ED Attending Note
ED Attending Note
ED Attending Note:
Recurrent subluxation in the setting of shoulder arthroplasty. Spontaneously reduced at this time. Placed patient in sling. Notified patient's primary orthopedist Dr. Platt for close follow-up
-
Portions of this chart may have been created with voice recognition software.� Occasional wrong word or��sound alike� substitutions may have occurred due to the inherent limitations of voice recognition software.
Discharge Plan
Departure
Patient Disposition: Home (Routine Discharge)
Date of Disposition: 10/28/24
Time of Disposition: 12:35
Patient with high blood pressure during this ER visit?: Yes
Discharge Problem:
Shoulder subluxation
Instructions: How to Use a Shoulder Sling
Prescriptions:
No Action
nitroglycerin 0.4 MG tablet, sublingual
0.4 mg sublingual [id number] PRN (Reason: chest pain) Qty: 25 2RF
atorvastatin 40 MG tablet
40 mg PO DAILY
isosorbide mononitrate 60 MG tablet extended release 24 hr
60 mg PO DAILY
metoprolol succinate 50 mg tablet extended release 24 hr
50 mg PO DAILY
cholecalciferol (vitamin D3) [Vitamin D3] 125 mcg (5,000 unit) Tablet
125 mcg PO HS
Dupixent Pen 300 mg/2 mL Pen Injector
300 mg SC Q2W
icosapent ethyl 1 gram Capsule
1 g PO BID
ferrous sulfate [iron] 325 mg (65 mg iron) Tablet
325 mg PO HS
furosemide [Lasix] 40 mg tablet
40 mg PO DAILY
colchicine 0.6 mg Tablet
0.6 mg PO BID Qty: 180 0RF
Referrals:
Carlos Platt MD [Active] -
Activity Restrictions/Additional Instructions:
Please wear the sling for the next 2 to 3 weeks. Follow-up in the office with Dr. Platt as soon as possible
Interventions
Interventions:
*Risk Screen - Suicide Last Done: 10/28/24 11:58
*General Assessment Last Done: 10/28/24 12:53
*Neglect/Abuse Screening Last Done: 10/28/24 11:58
ED- Fall Risk Assessment Last Done: 10/28/24 12:56
*ED COVID-19 Vaccine History Last Done: 10/28/24 12:53
*Nursing Disposition Last Done: 10/28/24 13:00
ED-Musculoskeletal Assessment Last Done: 10/28/24 12:55
Discharge Date and Time
Discharge Date/Time: 10/28/24 13:04
Print Language: AZERI
== END 2024-10-28 13:04 | disposition home or self-care (01) ==
LOC: EMR 11:56
PROVIDERS: EMERGENCY PHYSICIAN Emergency Medicine; FAMILY PHYSICIAN Family Medicine
DX: S43.001A Unspecified subluxation of right shoulder joint, initial encounter (principal); I25.10 Atherosclerotic heart disease of native coronary artery without angina pectoris; I10 Essential (primary) hypertension; E78.00 Pure hypercholesterolemia, unspecified; G47.33 Obstructive sleep apnea (adult) (pediatric); J44.9 Chronic obstructive pulmonary disease, unspecified; Z95.810 Presence of automatic (implantable) cardiac defibrillator; Z95.5 Presence of coronary angioplasty implant and graft; Z86.73 Personal history of transient ischemic attack (TIA), and cerebral infarction without residual deficits; Z87.891 Personal history of nicotine dependence; Z90.49 Acquired absence of other specified parts of digestive tract; Z88.8 Allergy status to other drugs, medicaments and biological substances; Z91.018 Allergy to other foods; Z91.048 Other nonmedicinal substance allergy status
CPT/HCPCS: 99283; 73030

== ENCOUNTER → 2024-12-18 14:35 | Outpatient (REF) | payer MEDICARE, SELFPAY | LOC: RCS 14:35 | PROVIDERS: ATTENDING PHYSICIAN Internal Medicine Cardiovascular Disease; FAMILY PHYSICIAN Family Medicine | DX: I31.39 Other pericardial effusion (noninflammatory) (principal) | CPT/HCPCS: 93306 ==

== ENCOUNTER → 2025-02-23 16:21 | Outpatient (REF) | payer MEDICARE, SELFPAY ==
[2025-02-23 17:51] LABS: Blood Urea Nitrogen 31 mg/dl (9-20); Calcium 9.7 mg/dl (8.4-10.2); Carbon Dioxide 26 mmol/L (22-30); Chloride 107 mmol/L (98-107); Glucose 95 mg/dl (70-99); Sodium 143 mmol/L (135-145); eGFR > 60.00
== END ==
LOC: REG 16:21
PROVIDERS: ATTENDING PHYSICIAN Internal Medicine Cardiovascular Disease; FAMILY PHYSICIAN Family Medicine
DX: E78.5 Hyperlipidemia, unspecified (principal)
CPT/HCPCS: 36415; 80048

== ENCOUNTER 2025-03-05 09:18 | Inpatient (IN) | payer MEDICARE, SELFPAY ==
[2025-02-09 14:08] VITALS: BMI 32.4
[2025-02-09 15:14] LABS: Hematocrit 35.6 % (39.0-52.0); Hemoglobin 11.4 g/dL (13.0-18.0); Mean Corpuscular Hgb 28.9 pg (27.0-31.0); Mean Corpuscular Volume 90.1 fL (80.0-94.0); Mean Platelet Volume 9.3 fL (7.4-10.4); Platelet Count 372 10^3/uL (130-400); Red Blood Cell Count 3.95 10^6/uL (4.70-6.10); Red Cell Dist. Width 15.8 % (11.5-14.5); White Blood Cell Count 7.1 10^3/uL (4.8-10.8)
[2025-02-09 15:24] LABS: ALT (SGPT) 20 U/L (0-50); AST (SGOT) 37 U/L (17-59); Albumin 4.4 g/dl (3.5-5.0); Alkaline Phosphatase 135 U/L (38-126); Blood Urea Nitrogen 42 mg/dl (9-20); Calcium 9.5 mg/dl (8.4-10.2); Carbon Dioxide 27 mmol/L (22-30); Chloride 103 mmol/L (98-107); Estimated Creatinine Clearance 62 ml/min; Glucose 101 mg/dl (70-99); Potassium 5.2 mmol/L (3.5-5.1); Sodium 141 mmol/L (135-145); Total Bilirubin 0.7 mg/dl (0.2-1.3); Total Protein 7.7 g/dl (6.3-8.2); eGFR > 60.00
[2025-02-10 09:26] LABS: Glycohemoglobin (HgbA1c) 5.8 % (4.0-5.6)
[2025-02-27 13:23] VITALS: BMI 32.4
[2025-03-05] VITALS (15 sets, daily range): BP systolic 106–144; BP diastolic 59–84; PULSE 61; O2SAT 97; BMI 32.4
[2025-03-05] MEDS: NORMOSOL-R/PLASMALYTE-A 1000 IV ×2 (09:40→13:01)
[2025-03-05] MEDS: CELEBREX 200 MG PO (09:50)
[2025-03-05] MEDS: TYLENOL 650 MG PO ×3 (09:50→21:50)
--- NOTE | 2025-03-05 12:59 | W.DS.TRANS ---
DC Summary - Break Out Worker
-
Discharge Instructions:
Discharge Diagnosis/Procedures L TKA 03/05/25
Diet As tolerated
Activity With Walker
Driving Restrictions No driving
Bathing Restrictions OK to Shower
Instructions:
Stand-Alone Forms: Total Hip/Knee Replacement D/C
Changes to Home Medications: Yes
Discharge Medications:
DC Medications w/original date entered in [employer]
nitroglycerin 0.4 mg sublingual tablet 0.4 mg sublingual [id number] PRN chest pain #25 tabs 11/08/20
atorvastatin 40 mg tablet 40 mg PO DAILY High cholesterol 05/23/21
isosorbide mononitrate 60 mg tablet,extended release 24 hr 60 mg PO DAILY Heart disease/condition 10/20/21
metoprolol succinate 50 mg tablet,extended release 24 hr 50 mg PO BID Blood pressure 02/03/23
cholecalciferol (vitamin D3) 125 mcg (5,000 unit) tablet (Vitamin D3) 125 mcg PO DAILY 09/17/23
dupilumab 300 mg/2 mL subcutaneous pen injector (Dupixent) 300 mg SC Q2W 09/17/23
icosapent ethyl 1 gram capsule 2 g PO BID 01/14/24
furosemide 40 mg tablet (Lasix) 40 mg PO DAILY 08/07/24
ferrous sulfate 325 mg (65 mg iron) tablet 325 mg PO DAILY 02/09/25
mupirocin 2 % topical ointment 1 applic intranasal BID #1 tube 02/09/25
acetaminophen 325 mg tablet (Tylenol) 650 mg (2 x 325 mg) PO QID #1 tab 03/05/25
aspirin 325 mg tablet 325 mg PO DAILY blood clot prevention #1 tab 03/05/25
dexamethasone 4 mg tablet 4 mg PO BID inflammation #6 tabs 03/05/25
docusate sodium 100 mg capsule (Colace) 100 mg PO BID stool softner #1 cap 03/05/25
famotidine 20 mg tablet 20 mg PO HS GI prophylaxis #30 tabs 03/05/25
gabapentin 300 mg capsule 300 mg PO HS sleep/pain #10 caps 03/05/25
magnesium hydroxide 400 mg/5 mL oral suspension (Milk of Magnesia) 30 ml PO HS PRN Constipation #1 mL 03/05/25
ondansetron 4 mg disintegrating tablet 4 mg PO Q6H PRN n/v #20 tabs 03/05/25
oxycodone 5 mg tablet 5 mg PO Q6H PRN 1 tab moderate pain, 2 tabs severe pain #30 tabs 03/05/25
sennosides 8.6 mg tablet (Senokot) 17.2 mg (2 x 8.6 mg) PO BID laxative #2 tabs 03/05/25
Home Medication Changes
mupirocin 2 % topical ointment 1 applic intranasal BID #1 tube 02/09/25
acetaminophen 325 mg tablet (Tylenol) 650 mg (2 x 325 mg) PO QID #1 tab 03/05/25
aspirin 325 mg tablet 325 mg PO DAILY blood clot prevention #1 tab 03/05/25
dexamethasone 4 mg tablet 4 mg PO BID inflammation #6 tabs 03/05/25
docusate sodium 100 mg capsule (Colace) 100 mg PO BID stool softner #1 cap 03/05/25
famotidine 20 mg tablet 20 mg PO HS GI prophylaxis #30 tabs 03/05/25
gabapentin 300 mg capsule 300 mg PO HS sleep/pain #10 caps 03/05/25
magnesium hydroxide 400 mg/5 mL oral suspension (Milk of Magnesia) 30 ml PO HS PRN Constipation #1 mL 03/05/25
ondansetron 4 mg disintegrating tablet 4 mg PO Q6H PRN n/v #20 tabs 03/05/25
oxycodone 5 mg tablet 5 mg PO Q6H PRN 1 tab moderate pain, 2 tabs severe pain #30 tabs 03/05/25
sennosides 8.6 mg tablet (Senokot) 17.2 mg (2 x 8.6 mg) PO BID laxative #2 tabs 03/05/25
Pending Results: No
--- NOTE | 2025-03-05 12:59 | W.PN.UPDATE ---
Update Note
Progress Note Update
L TKA 03/05/25
DVT ppx ASA
--hx GIB, recurrent pericardial effusion-given need for antiplatelet as indicated for CAD stents as well as CVA-presumed ischemic, will avoid anticoagulant with antiplatelet concomitantly
PAF -off oac for now due to above-continue BB -tele-eventual Watchman
V-tach-ICD
CARIN-will dose IV iron while inpatient
CVA hx-BP control + statin+ asa
[2025-03-05] MEDS: ROXICODONE 5 MG PO (13:01)
--- NOTE | 2025-03-05 14:57 | PTCARENOTE ---
Received patient from PACU via bed. Pt AAOX3. A-paced on panel monitor. Pox: 96% RA. IVFs infusing without difficulty. Call varner within reach. Plan of care ongoing.
[2025-03-05] MEDS: ASPIRIN 325 MG PO (17:33)
[2025-03-05] MEDS: ANCEF 5 IV (17:34)
[2025-03-05] MEDS: FLUSH (NSS) 1 FLUSH IV (17:34)
[2025-03-05] MEDS: NEURONTIN 300 MG PO (21:46)
[2025-03-05] MEDS: PROTONIX 40 MG PO (21:46)
[2025-03-05] MEDS: DECADRON 4 MG IV (21:47)
[2025-03-05] MEDS: SENOKOT 17.2 MG PO (21:47)
[2025-03-05] MEDS: COLACE 100 MG PO (21:49)
[2025-03-05] MEDS: TOPROL XL 50 MG PO (21:49)
[2025-03-06] MEDS: TYLENOL 650 MG PO ×2 (00:40→08:17)
[2025-03-06] MEDS: BACTROBAN 2% OINTMENT 1 APPLIC NASAL (00:40)
[2025-03-06] MEDS: ROXICODONE 2.5 MG PO (00:45)
[2025-03-06] MEDS: ANCEF 5 IV (01:03)
[2025-03-06 03:32] VITALS: BP 122/67
[2025-03-06] MEDS: TYLENOL PO (04:20)
[2025-03-06 08:00] VITALS: BP 112/64
[2025-03-06 08:10] VITALS: BP 112/64
[2025-03-06] MEDS: ASPIRIN 325 MG PO (08:16)
[2025-03-06] MEDS: LIPITOR 40 MG PO (08:16)
[2025-03-06] MEDS: TOPROL XL 50 MG PO (08:17)
[2025-03-06] MEDS: FEOSOL 325 MG PO (08:17)
[2025-03-06] MEDS: DECADRON 4 MG IV (08:17)
[2025-03-06] MEDS: COLACE 100 MG PO (08:17)
[2025-03-06] MEDS: SENOKOT 17.2 MG PO (08:17)
[2025-03-06] MEDS: BACTROBAN 2% OINTMENT NASAL (08:24)
--- NOTE | 2025-03-06 08:33 | W.PN.ORTHO ---
Today's Communication / Plan
-
d/c if mod I RW PT/OT
Assessment
.
Distal Motor Intact: Yes
Dressing:
Clean, dry and intact.
Assessment:
Mild crackles lung bases-IV Lasix at reduced dose w/low dose Midodrine--O2sats stable
Hx GIB, recurrent pericardial effusion--given need for antiplatelet as indicated for CAD stents as well as CVA-(resumed ischemic), will avoid anticoagulant with antiplatelet concomitantly-+ pepcid ppx RX
PAF -off oac for now due to above-continue BB -tele-eventual Watchman
V-tach-ICD
-stable on tele
CARIN---dose IV iron while inpatient to maintain stores
CVA hx-BP control + statin+ asa
Plan
.
Surgery / Date: L TKA 03/05/25
DVT Prophylaxis: Aspirin
Activity:
Out of bed.
PT/OT
Discharge Plan: Home w/ Outpatient PT
Subjective
.
.:
Patient resting comfortably.
Vital Signs and Labs
.
Vital Signs and Labs:
Lab Results
02/09/25 12:40
02/09/25 12:40
Temp Pulse Resp BP Pulse Ox
97.6 F 62 18 112/64 98
03/06/25 08:00 03/06/25 08:00 03/06/25 08:00 03/06/25 08:00 03/06/25 08:00
Non-invasive Hgb result: 11.8
Physical Exam
-
HEENT: No pallor, cyanosis, or jaundice. Throat clear.
NECK: Supple. No JVD.
RESPIRATORY: mild crackles
CVS: S1, S2 normal. RRR.� No murmur, rub or gallop.
ABDOMEN: Soft, non-tender. No distension. BS+/normal.
EXTREMITIES: strength equal, no calf pain with palpation
TRUCK AND TRANSPORT MECHANIC: AOx3. No focal deficits. telecommunication systems designer grossly intact
[2025-03-06] MEDS: LASIX 20 MG IV (08:57)
[2025-03-06] MEDS: ProAmatine 2.5 MG PO (08:57)
[2025-03-06 09:25] VITALS: BP 123/66; PULSE 61; O2SAT 99
--- NOTE | 2025-03-06 09:32 | CM ---
Addendum entered by Deysi Cisneros RN 03/06/25 09:36:
Plan: Home with Outpatient PT
Original Note:
Cm reviewed medical records. CM met with patient in room. Patient confirmed demographics. Patient has had a history of VN, but cannot remember the name of the agency. Patient does have an RN from [facility] that provides yearly visits.
Patient has been to a SNF, but cannot remember where. Patient lives with and is otherwise independent. Patient is active with his PCP. Patient uses [facility] for medication services.
Plan for outpatient PT at [facility]. Patient does have an appointment on 03/07/2025 at 12noon.
[2025-03-06] MEDS: FERRLECIT 110 MG IV (10:08)
[2025-03-06 10:10] VITALS: BP 138/62; PULSE 62
[2025-03-06 11:42] VITALS: BP 121/58
== END 2025-03-06 11:45 | disposition home or self-care (01) | DRG 470 ==
LOC: 2 SOUTH 09:18
PROVIDERS: ADMITTING PHYSICIAN Specialist; FAMILY PHYSICIAN Family Medicine
PROC: 0SRD0J9 Replacement of Left Knee Joint with Synthetic Substitute, Cemented, Open Approach (ICD-10-PCS; 2025-03-05)
DX: M17.12 Unilateral primary osteoarthritis, left knee (principal); I47.20 Ventricular tachycardia, unspecified; J84.9 Interstitial pulmonary disease, unspecified; Z96.612 Presence of left artificial shoulder joint; I10 Essential (primary) hypertension; E78.5 Hyperlipidemia, unspecified; E66.9 Obesity, unspecified; Z68.32 Body mass index [BMI] 32.0-32.9, adult; Z86.73 Personal history of transient ischemic attack (TIA), and cerebral infarction without residual deficits; Z95.810 Presence of automatic (implantable) cardiac defibrillator; Z95.5 Presence of coronary angioplasty implant and graft; Z98.41 Cataract extraction status, right eye; Z98.42 Cataract extraction status, left eye; Z87.891 Personal history of nicotine dependence; Z96.611 Presence of right artificial shoulder joint; D50.9 Iron deficiency anemia, unspecified; G47.33 Obstructive sleep apnea (adult) (pediatric); H91.93 Unspecified hearing loss, bilateral; I25.10 Atherosclerotic heart disease of native coronary artery without angina pectoris; I48.0 Paroxysmal atrial fibrillation; J45.909 Unspecified asthma, uncomplicated; K21.9 Gastro-esophageal reflux disease without esophagitis; L40.9 Psoriasis, unspecified; R73.03 Prediabetes
CPT/HCPCS: 36415; 73560; 80053; 83036; 85027; 86850; 86900; 86901; 87070; 97110; 97116; 97162; 97166; 97530; 97535; C1713; C1776; J2916

== ENCOUNTER 2025-03-27 10:57 | Outpatient (RCR) | payer MEDICARE, SELFPAY | END 2025-03-27 23:59 | disposition home or self-care (01) | LOC: RPT 10:57 | PROVIDERS: ATTENDING PHYSICIAN Specialist; FAMILY PHYSICIAN Family Medicine | DX: Z47.1 Aftercare following joint replacement surgery (principal); Z96.653 Presence of artificial knee joint, bilateral; R26.89 Other abnormalities of gait and mobility; M25.562 Pain in left knee; R26.2 Difficulty in walking, not elsewhere classified; M62.81 Muscle weakness (generalized); Z96.662 Presence of left artificial ankle joint; Z96.611 Presence of right artificial shoulder joint | CPT/HCPCS: 97010; 97110; 97116; 97140; 97162; 97535 ==

== ENCOUNTER 2025-04-27 10:17 | Outpatient (RCR) | payer MEDICARE, SELFPAY | END 2025-04-27 23:59 | disposition home or self-care (01) | LOC: RPT 10:17 | PROVIDERS: ATTENDING PHYSICIAN Specialist; FAMILY PHYSICIAN Family Medicine | DX: Z47.1 Aftercare following joint replacement surgery (principal); Z96.653 Presence of artificial knee joint, bilateral; Z96.662 Presence of left artificial ankle joint; Z96.611 Presence of right artificial shoulder joint; M62.81 Muscle weakness (generalized); R26.2 Difficulty in walking, not elsewhere classified; R26.89 Other abnormalities of gait and mobility; M25.562 Pain in left knee | CPT/HCPCS: 97110 ==

== ENCOUNTER 2025-05-04 11:03 | Outpatient (RCR) | payer MEDICARE, SELFPAY | END 2025-05-07 05:53 | disposition home or self-care (01) | LOC: RPT 11:03 | PROVIDERS: ATTENDING PHYSICIAN Specialist; FAMILY PHYSICIAN Family Medicine | DX: Z47.1 Aftercare following joint replacement surgery (principal); M62.81 Muscle weakness (generalized); Z96.652 Presence of left artificial knee joint; R26.89 Other abnormalities of gait and mobility; M25.562 Pain in left knee; R26.2 Difficulty in walking, not elsewhere classified; Z96.653 Presence of artificial knee joint, bilateral; Z96.611 Presence of right artificial shoulder joint; Z96.662 Presence of left artificial ankle joint | CPT/HCPCS: 97110 ==

== ENCOUNTER 2025-08-07 05:53 | Inpatient (IN) | payer MEDICARE, SELFPAY ==
--- NOTE | 2025-07-27 08:26 | HPS.HSE ---
Family Physician
-
Family Physician: INTERVIEWE UNKNOWN - PT NOT
Chief Complaint
-
Paroxysmal atrial fibrillation.
History of Present Illness
The patient is an 80 year old male presenting today for paroxysmal atrial fibrillation. The patient reports a history of exertional shortness of breath, palpitations, and occasional dizziness secondary to this diagnosis. He underwent
pulmonary vein isolation in January 2023 for his arrhythmia. He notes that since his ablation, his symptoms have significantly improved. He is on pharmacological therapy with Metoprolol Succinate. He was previously on Amiodarone; however, this
medication was discontinued due to associated interstitial lung disease. He has been compliant with Eliquis for oral anticoagulation due to a [id number] of 6. His other pertinent medical history includes rectal bleeding and recurrent pericardial
effusion for which he underwent a pericardiocentesis in July 2024. He has been off oral anticoagulation intermittently due to these diagnoses. Given his elevated risk of thromboembolic events, as well as increased risk of bleeding while
remaining on oral anticoagulation, it is recommended he proceed with a Watchman implant at this time. He denies any current complaints today such as chest pain, shortness of breath at rest, palpitations, nausea, vomiting, diarrhea, lightheadedness,
cough, sore throat, or fever.
Medical History
Past Medical History
Past Medical History: Reports Other
Additional Past Medical History:
1. Paroxysmal atrial fibrillation, status post ablation 01/2023; pharmacological therapy with Metoprolol Succinate and oral anticoagulation with Eliquis.
2. Ventricular tachycardia, status post ICD implantation 10/2021.
3. Hypertension.
4. Hyperlipidemia.
5. Coronary artery disease, status post PCI with drug-eluting stent to left circumflex, 10/2020, drug-eluting stent to RCA x2, 04/2021, and drug-eluting stent to proximal LAD 09/2021.
6. Mild-moderate aortic stenosis.
7. Recurrent pericardial effusion, status post pericardiocentesis 07/2024.
8. Asthma, moderate and persistent.
9. Amiodarone-related interstitial lung disease.
10. Right pleural effusion, status post thoracentesis 12/2023.
11. Obstructive sleep apnea, compliant with CPAP.
12. Chronic dyspnea on exertion.
13. Chronic kidney disease stage 3.
14. GERD.
15. Gastrointestinal metaplasia.
16. History of rectal bleeding.
17. 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
18. Multilevel degenerative disc disease.
19. Osteoarthritis, status post right total knee arthroplasty, 12/2017, and left total knee arthroplasty 02/2025.
20. Right rotator cuff arthropathy, status post right reverse total shoulder arthroplasty 01/2024.
21. Iron deficiency anemia, on oral supplementation.
22. Psoriasis.
23. C diff colitis 2010.
24. Shingles 10/2024.
25. Prediabetes.
26. Hearing impairment bilaterally.
27. Obesity.
28. Remote history of tobacco abuse.
Past Surgical History: Reports Other
Additional Past Surgical History:
1. Pulmonary vein isolation.
2. PCI with drug eluting stent to left circumflex.
3. PCI with drug eluting stent to RCA x2.
4. PCI with drug-eluting stent to proximal LAD.
5. ICD implantation.
6. Pericardiocentesis.
7. Left total knee arthroplasty.
8. Right total knee arthroplasty.
9. Right reverse total shoulder arthroplasty.
10. Left ankle replacement.
11. Right rotator cuff repair.
12. Right thumb surgery.
13. Right foot neuroma excision.
14. Laparoscopic cholecystectomy.
15. Deviated septum repair.
16. Thoracentesis.
17. Bilateral cataract extraction.
18. Multiple colonoscopies.
19. Endoscopy.
Social History
Tobacco: Former Smoker (He is a former half pack per day cigarette smoker who quit tobacco products altogether 60+ years ago.)
Alcohol: Other (Rare use reported.)
Personal:
Living: Other (The patient lives in a two-story home with his .)
Family History
Family History: Not pertinent
Allergies / Home Medications
Allergy/Medication List:
HOME MEDICATIONS:
1. Eliquis 2.5 mg p.o. twice a day.
2. Neuriva 1 tablet p.o. daily.
3. Cholecalciferol 125 mcg p.o. daily.
4. Mecobalamin 2500 mcg p.o. daily.
5. Furosemide 40 mg p.o. daily.
6. Isosorbide mononitrate 60 mg p.o. daily.
7. Metoprolol succinate 50 mg p.o. daily.
8. Nitroglycerin 0.4 mg sublingual every five minutes as needed (maximum of three doses).
9. Ferrous sulfate 325 mg p.o. daily.
ALLERGIES: Amiodarone. Olmesartan. [place]. [place]. Tree and shrub pollen.
Review of Systems
-
A 12 point ROS was completed and negative except as noted: Yes
Physical Exam
Vital Signs
Blood pressure 155/78. Heart rate 59. Respirations 18. Pulse ox 97% on room air.
Physical Exam
General: Well Developed, Well Nourished and No Apparent Distress
HEENT: NormoCephalic, Moist mucous membranes, Atraumatic and PERRLA
Respiratory: Clear
Cardiac: Regular Rhythm and Other (ICD site intact. )
GI: Soft, Non Tender and Non Distended
Musculoskeletal: No Edema and Normal Gait & Station
Skin: Warm and Dry
Neuro: AO x 3 and Nonfocal/grossly intact
Laboratory Results
-
DIAGNOSTIC STUDIES as of 07/27/2025: White blood cell count 5.4. Hemoglobin 12.7. Platelet count 311,000. PT 14.0. INR 1.05. Sodium 139. Potassium 4.4. BUN 25. Creatinine 1.1. Glucose 102. Calcium 9.6. AST 25. ALT 19. Albumin 4.3. MRSA screen
negative.
EKG 07/27/2025: Atrial paced rhythm. Non-specific intra-ventricular conduction delay.
Echocardiogram 12/18/2024: Mild concentric left ventricular hypertrophy. Left ventricular ejection fraction is 56%. ICD wire seen in right ventricle. Mildly dilated left atrium. Thickened aortic valve with restricted leaflet motion. Peak/mean
gradients across the valve are 29/16 mmHg. Using an LVOT of 2.1 cm, the calculated valve area is 1.1 cm squared. Mild to moderate aortic stenosis. No aortic regurgitation is seen. Normal pericardium and pleura without evidence of effusion. When
compared to the prior study on 09/11/2024, there is no significant change.
Impression/Plan
-
IMPRESSION/PLAN:
1. Paroxysmal atrial fibrillation: The patient is in need of a Watchman implant with Dr. Iván Lee on 08/07/2025. The benefits and risks of the procedure have been explained to the patient. The patient understands these risks and wishes to
proceed. He will hold his Eliquis the morning of his procedure. Post-surgery, he will continue oral anticoagulation for 3 months. In 3 months' time, he will undergo a transesophageal echocardiogram to assess the stability of his device. Should his
device be well seated and without significant leaks, he likely will be transitioned off Eliquis and onto a daily baby Aspirin indefinitely.
[2025-07-27 11:50] LABS: Hematocrit 38.0 % (39.0-52.0); Hemoglobin 12.7 g/dL (13.0-18.0); Mean Corp Hgb Conc. 33.4 g/dL (33.0-37.0); Mean Corpuscular Volume 86.8 fL (80.0-94.0); Nucleated Red Blood Cells % 0 % (-); Platelet Count 311 10^3/uL (130-400); Red Cell Dist. Width 14.6 % (11.5-14.5)
[2025-07-27 12:01] LABS: INR 1.05; PT 14.0 Sec (11.4-14.6)
[2025-07-27 12:13] LABS: ALT (SGPT) 19 U/L (0-50); AST (SGOT) 25 U/L (17-59); Albumin 4.3 g/dl (3.5-5.0); Alkaline Phosphatase 112 U/L (38-126); Blood Urea Nitrogen 25 mg/dl (9-20); Calcium 9.6 mg/dl (8.4-10.2); Carbon Dioxide 26 mmol/L (22-30); Chloride 105 mmol/L (98-107); Glucose 102 mg/dl (70-99); Potassium 4.4 mmol/L (3.5-5.1); Sodium 139 mmol/L (135-145); Total Protein 7.5 g/dl (6.3-8.2); eGFR > 60.00
[2025-08-07] VITALS (13 sets, daily range): BP systolic 103–154; BP diastolic 63–83; BMI 30.4
[2025-08-07] MEDS: NSS 500 IV (07:16)
[2025-08-07 09:10] LABS: ACT-LR - POC 219 Seconds (116-155)
--- NOTE | 2025-08-07 09:25 | WATCHMAN.MD ---
Watchman Implant
-
ELECTROPHYSIOLOGY/INTERVENTIONAL PROCEDURE REPORT
Date of Procedure: August 07, 2025
Assisting Physician: Iván Lee
PROCEDURES:
1. Left atrial appendage occlusion device using 27 mm WATCHMAN FLX device
2. Intracardiac echocardiography
3. Ultrasound-guided right common femoral venous access
INDICATION: High [id number] warranting manager long term care full anticoagulation but inability to do this given his bleeding risk/bleeding complication.
ACCESS: Right common femoral vein, 16Fr sheath and 9Fr. sheaths, under US guidance using micropunture kit.
Ultrasound was utilized for vascular access. The right femoral vein was visualized under ultrasound, and the vessels was patent. An image was stored permanently in the patient's medical record. Under direct ultrasound guidance, an 8 Romansh
sheaths was inserted into the right common femoral vein, using a micropuncture kit through a modified Seldinger technique.
HEMODYNAMICS : (mmHg)
LA Pressure: 15
PROCEDURE REPORT:
After informed consent and patient safety 'Timeout' the patient was intubated and sedated by the anesthesiology service. Under ultrasound guidance, the right femoral vein was accessed by Dr. Iván Lee twice for transseptal puncture and
intracardiac ultrasound, respectively. Concomitant transesophageal echocardiogram was performed by Dr. Darek Castellano
Baseline intracardiac ultrasound demonstrated no pericardial effusion and baseline TRUDI images revealed a trace pericardial effusion.
After ruling out a left atrial appendage thrombus, the patient was heparinized for an ACT between 350-400 seconds and under TRUDI and intracardiac ultrasound guidance transseptal puncture was performed by Dr. Orquidea Mcelroy using the Jay VersaCross
trans-septal system in a mid position on the inferior-superior axis and a mid position on the anterior-posterior axis. Left atrial pressure was 15 millimeters mercury.
Once transseptal puncture was performed over the Jay Versacross pigtail 0.035 wire, which was parked in the body of left atrial appendage, the watchman access double curve sheath was advanced over this into the left atrium. A 5 Romansh pigtail
catheter was placed into the left atrial appendage and an appendage gram was performed using intravenous contrast dye demonstrating a [ ] type anatomy that was suitable likely for a [ ] mm WATCHMAN FLX device.
After appropriately prepping the device, Dr. Iván Lee successfully deployed a 27 mm WATCHMAN FLX device. Device showed excellent positioning with no leaks post device deployment. 16 to 18 % compression was noted in the device after deployment. A
'tug-test' was performed demonstrating stability of the device. Given PASS criteria were met, the device was then released successfully by Dr. Iván Lee
Post procedure, TRUDI imaging demonstrated no new or worse pericardial effusion. Sheaths and catheters were removed from the left atrium and heparin was reversed using protamine. Catheters removed from the femoral veins with [id number] suture
applied. The patient tolerated the procedure well.
RADIATION SUMMARY: Fluoro Time (min): 8.2, Dose (mGy): 137, DAP (Gy.cm2) : 15
Closure Device: Figure of 8 suture
CONCLUSIONS
1. Successful deployment of 27 mm WATCHMAN FLX device under TRUDI and ICE guidance.
RECOMMENDATIONS
1. Plan for Eliquis 2.5 mg twice daily for the next 3 months.
2. 3-month TRUDI post procedure to assess stability of device and rule out any familia-device leaks. If no issues noted on the 3-month TRUDI post watchman placement such as a greater than 5 mm leak, plan would be to stop anticoagulation at that point and
continue daily baby aspirin lifelong.
3. Figure of 8 suture removal prior to discharge.
Orquidea Mcelroy MD, [facility], [facility]
--- NOTE | 2025-08-07 09:59 | ITS.CL.PN ---
Carousel Attendant - Procedure Note
Procedure
Procedure Note:
Watchman implantation report
Date: August 07, 2025
History: Mr. Mcguire is a very pleasant 80-year-old male with a history of dual-chamber ICD and atrial arrhythmias who also has elevated bleeding risk see HPI
Watchman implant: Rosa
Transseptal duplicator punch operator: Navi
Procedure report:
After informed consent and patient safety timeout the patient was sedated under general anesthesia by the anesthesiology service. TRUDI was performed see separate report. This revealed a 20 mm ostium without left atrial appendage thrombus
correlating with the patient's preprocedure CT scan. Under ultrasound guidance a 9 Guamanian and 8 Guamanian sheaths were placed in the right femoral vein and intracardiac ultrasound was also utilized to image the patient's fossa and to navigate around
the ICD leads. The ICD was interrogated pre and postprocedure with stable lead parameters and device therapies were turned off for procedure and then turned back on after procedure.
Once venous access was established and intracardiac ultrasound was brought to the right atrium the standard watchman sheath was brought over the pigtail wire to the SVC. Carefully withdrawing the sheath down to the fossa a inferior and anterior
approach was taken and radiofrequency wire was utilized to access the left atrium and the sheath was then brought into the left atrium. This was all performed Dr. Mcelroy. Pigtail catheter was then placed in left atrial pended and appendage gram
demonstrated a cauliflower morphology with a 20 mm ostium. With significant working depth of 24 to 26 mm we utilized a [address] Lee performed the device implantation. The device med Pass criteria with stable tug test, ostial
position, no leak, 16 to 18% compression and after meeting Pass criteria the device was deployed. Heparin was given to maintain ACT greater than 300 seconds and protamine 25 mg was given post procedure. The device was applied and sheath and
catheters removed to the right atrium and there is no pericardial effusion pre or post procedure. [id number] suture once the right femoral venous access was removed was placed.
Impression:
27 mm Watchman device
Recommendations:
TRUDI in 3 months
Eliquis 2.5 mg p.o. twice daily x 3 months
Continue other medications
No atrial arrhythmias on his interrogation today and as such we did not perform additional ablation during the watchman delivery
--- NOTE | 2025-08-07 13:56 | W.DS.TRANS ---
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
-
Discharge Instructions:
Discharge Diagnosis/Procedures AFib, s/p Watchman device implant
Diet Low Cholesterol
Driving Restrictions No driving for 24 hours
Others Tests Follow up TRUDI is scheduled for you at [place]
[facility] on 11/08/[address] High. You will receive a call the night
before with arrival time.
Instructions:
Stand-Alone Forms: DC Instructions- Cath/EP Lab
Changes to Home Medications: No
Discharge Medications:
DC Medications w/original date entered in [employer]
nitroglycerin 0.4 mg sublingual tablet 0.4 mg sublingual [id number] PRN chest pain #25 tabs 11/08/20
isosorbide mononitrate 60 mg tablet,extended release 24 hr 60 mg PO DAILY Heart disease/condition 10/20/21
cholecalciferol (vitamin D3) 125 mcg (5,000 unit) tablet (Vitamin D3) 125 mcg PO DAILY Supplement 09/17/23
furosemide 40 mg tablet (Lasix) 40 mg PO DAILY Fluid Retention/Swelling 08/07/24
ferrous sulfate 325 mg (65 mg iron) tablet 325 mg PO DAILY Supplement 02/09/25
B6 0.85 mg-folic 200 [id number]-[id number] oral chewable tablet (Neuriva Plus) 1 tab PO DAILY 07/26/25
apixaban 2.5 mg tablet (Eliquis) 2.5 mg PO BID 07/26/25
mecobalamin (vitamin B12) 1,000 mcg chewable tablet (B12 Active) 2,500 mcg PO DAILY 07/26/25
metoprolol succinate 50 mg tablet,extended release 24 hr 50 mg PO DAILY 07/26/25
Home Medication Changes
Pending Results: No
== END 2025-08-07 14:00 | disposition home or self-care (01) | DRG 274 ==
LOC: CATH-IN 05:53
PROVIDERS: Internal Medicine Cardiovascular Disease; ADMITTING PHYSICIAN Internal Medicine Cardiovascular Disease; FAMILY PHYSICIAN Family Medicine; REFERRING PHYSICIAN Internal Medicine Interventional Cardiology
PROC: 02L73DK Occlusion of Left Atrial Appendage with Intraluminal Device, Percutaneous Approach (ICD-10-PCS; 2025-08-07)
PROC: B24BZZ4 Ultrasonography of Heart with Aorta, Transesophageal (ICD-10-PCS; 2025-08-07)
DX: I48.0 Paroxysmal atrial fibrillation (principal); Z00.6 Encounter for examination for normal comparison and control in clinical research program; I47.20 Ventricular tachycardia, unspecified; I25.10 Atherosclerotic heart disease of native coronary artery without angina pectoris; E78.5 Hyperlipidemia, unspecified; N18.30 Chronic kidney disease, stage 3 unspecified; I12.9 Hypertensive chronic kidney disease with stage 1 through stage 4 chronic kidney disease, or unspecified chronic kidney disease; I35.0 Nonrheumatic aortic (valve) stenosis; J45.40 Moderate persistent asthma, uncomplicated; G47.33 Obstructive sleep apnea (adult) (pediatric); K21.9 Gastro-esophageal reflux disease without esophagitis; D50.9 Iron deficiency anemia, unspecified; L40.9 Psoriasis, unspecified; R73.03 Prediabetes; H91.93 Unspecified hearing loss, bilateral; E66.9 Obesity, unspecified; Z68.30 Body mass index [BMI] 30.0-30.9, adult; Z95.810 Presence of automatic (implantable) cardiac defibrillator; Z86.73 Personal history of transient ischemic attack (TIA), and cerebral infarction without residual deficits; Z95.5 Presence of coronary angioplasty implant and graft; Z87.891 Personal history of nicotine dependence; Z79.01 Long term (current) use of anticoagulants
CPT/HCPCS: 33340; 36415; 80053; 85025; 85347; 85610; 86850; 86900; 86901; 87070; 93005; 93355; 93662; C1759; C1769; C1892; C1894; Q9967

== ENCOUNTER 2025-11-08 07:00 | Day surgery (SDC) | payer MEDICARE, SELFPAY ==
[2025-11-08 07:35] VITALS: BMI 33.0
== END 2025-11-08 09:24 | disposition home or self-care (01) ==
LOC: CATH 07:00
PROVIDERS: ATTENDING PHYSICIAN Internal Medicine Cardiovascular Disease; FAMILY PHYSICIAN Family Medicine; OTHER PHYSICIAN Internal Medicine Cardiovascular Disease
DX: Z45.09 Encounter for adjustment and management of other cardiac device (principal); I48.0 Paroxysmal atrial fibrillation; Z95.818 Presence of other cardiac implants and grafts; I08.3 Combined rheumatic disorders of mitral, aortic and tricuspid valves; I08.8 Other rheumatic multiple valve diseases; I70.0 Atherosclerosis of aorta; I10 Essential (primary) hypertension; I47.20 Ventricular tachycardia, unspecified; E78.5 Hyperlipidemia, unspecified
CPT/HCPCS: 93312; 93320; 93325